=== PATIENT | female | born 1965 | race Hispanic/Latino ===

== ENCOUNTER → 2020-10-18 14:05 | Outpatient (CLI) | payer OTHER, SELFPAY ==
[2020-10-18 14:28] LABS: COVID19 -Nasal RAPID Negative (Negative)
== END ==
PROVIDERS: PCP Family Medicine; Visit Provider Physician Assistant
DX: Z20.822 Contact with and (suspected) exposure to COVID-19 (principal)
CPT/HCPCS: 87635

== ENCOUNTER 2020-10-21 09:59 | Inpatient (IN) | payer OTHER, SELFPAY ==
[2020-10-21] VITALS (12 sets, daily range): BP systolic 145–184; BP diastolic 81–107; PULSE 95–108; RESP 14–22; TEMP 35.5–36.6; O2SAT 95–99; BMI 33.6
[2020-10-21] MEDS: LACTATED RINGERS 1,000 ML 42 ML IV ×2 (12:04→13:36)
--- NOTE | 2020-10-21 12:31 | PM.PREOP ---
Pre-operative Note COVID-19 COVID-19 status: Negative Result date/Date tested (Pos, Neg/Pending): 10/19/20 Interval Note History & Physical reviewed/Exam performed by Physician: Yes Changes to H&P: No
[2020-10-21] MEDS: CEFAZOLIN 1 GM VIAL 2 GM IV ×2 (13:06→21:00)
--- NOTE | 2020-10-21 13:26 | SUR.OPER ---
Supine, head on gel donut. Arms padded with gel pads, tucked at sides, towel roll under shoulders. Safety belt at thigh. Legs uncrossed.
--- NOTE | 2020-10-21 15:35 | P.OP_ITS ---
Operative Date/Time/Diagnoses Date of procedure: 10/21/20 Time of procedure: 13:35 Pre-op diagnosis: 1. C5-6, C6-7 spinal stenosis 2. C5-6, C6-7 spondylosis with radiculopathy Post-op diagnosis: same Procedure & Clinicians Procedure: 1. C5-6 C6-7 anterior cervical diskectomy and fusion 2. C5-6 C6-7 anterior interbody cage placement 3. C5-6 C6-7 anterior instrumentation with plate and screw placement in C5-C6 and C7 vertebrae 4. Utilization of microsurgical technique and operating microscope Same procedure as scheduled: Yes Indications: Patient has been having chronic neck pain and worsening cervical radiculopathy. Patient failed multiple conservative management with worsening pain weakness and numbness in her upper extremity. Patient has been having difficulty performing activity of daily living. After discussing risks benefits of treatment options, patient elected proceed with surgery. Surgeon: Yesenia Joseph Mechanical Facilities Technician: Devan Abreu Click Yes if Unassisted: No Anesthesia Type: General Operative Notes Closure Type: primary Specimen(s): none sent Prosthetic devices, grafts, tissues, transplants, or devices: Globus Extend Plate, PEEK cages Estimated Blood Loss (mL): 20 Blood products transfused: none Procedure in detail: Patient was seen in the preoperative area. Risks and benefits of the surgery was discussed with the patient. Operative consent was obtained and placed in the chart. Patient was then taken to the operative room. Prophylactic antibiotic was given less than 0.5 hr prior to skin incision. General anesthesia was administered. Patient was placed into a supine position on her radiolucent table. Bilateral shoulders were taped down to allow proper C- arm imaging. Anterior cervical area was prepped and draped in a sterile fashion. Time-out was performed at this time. Using lateral C-arm imaging, the level between C5 and C7 was identified and marked on patient's neck. A oblique incision from midline towards medial border of sternocleidomastoid muscle was made. The platysma muscle was incised in line with skin incision. Metzenbaum scissor was used to develop the plane between the medial border of sternocleidomastoid d and the strap muscles medially. The carotid sheath and its contents were identified and protected behind the hand- held retractor during the entire case. The plane between the carotid sheath and strap muscles was developed with Metzenbaum scissors. Dissection was made down to the level of the anterior cervical fascia. Longus colli muscle was incised on the anterior aspect of vertebral bodies bilaterally from C5-C7. Spinal needle was placed into the C5-6 disc space and confirmed with lateral C-arm imaging. Using microsurgical technique and operative microscope, anterior cervical diskectomy was performed at C5-6 and C6-7 level. This was done by removing the disc material, removing the anterior and posterior osteophytes posterior longitudinal ligaments along with performing bilateral foraminotomies at both levels. Patient was found to have severe central and foraminal stenosis at both levels. Patient's stenosis was fully decompressed after decompression was completed. After the diskectomy was completed, 2 anterior interbody cages were obtained. The cages were packed with globus via cell bone grafting material. One cage each along with the bone grafting material was then packed into the interbody spaces from C5-C7 with one cage into each interbody level. After the cages were placed, the anterior cervical plate was stabilized to the C5-C7 vertebrae using 2 screws at each each level. Total 6 screws were placed. After confirming placement of the hardware with AP and lateral C-arm imaging, the screws were locked into the plate using the locking mechanism and torque limiting screwdriver. After the hardware was placed and confirmed with AP and lateral C-arm imaging, the wound was irrigated with sterile normal saline. The platysma muscle and the subcutaneous tissue was closed with 2-0 Vicryl. The skin was closed with 4-0 Monocryl and Steri-Strips. Patient tolerated the procedure well. Patient was transferred recovery room in stable condition. There were no complications. Complications: none Post-operative Condition: stable Disposition: PACU Plan for aftercare: Admit to inpatient hospital
--- NOTE | 2020-10-21 15:38 | DI.RAD.S_ITS ---
PROCEDURE: XR CERVICAL SPINE 2V OR 3V INDICATIONS: C5-6, C6-7 ACDF TECHNIQUE: 2 view(s) of the cervical spine were acquired. COMPARISON: [facility] [place], CR, XR CERVICAL SPINE 6+ VIEWS, 07/10/2020, 13:56. [facility] Outside Film, MR, MR CERVICAL SPINE WITHOUT CONTRAST, 07/24/2020, 13:23. FINDINGS: 2 intraoperative fluoroscopy images demonstrate discectomy and anterior fusion at C5-C6 and C6-C7. IMPRESSION: Discectomy and anterior fusion at C5-C6 and C6-C7. Dictated by: Yolanda Cantu M.D. on 10/21/2020 at 16:50 Approved by: Yolanda Cantu M.D. on 10/21/2020 at 17:05
[2020-10-21] MEDS: HYDROMORPHONE 2 MG INJ IV (15:51)
[2020-10-21] MEDS: ONDANSETRON 4 MG/2 ML INJ IV (16:19)
--- NOTE | 2020-10-21 16:34 | SUR.PHASEI ---
Pt up to floor with self and RN Viviane transporting. Report given to Rodney MCLAUGHLIN. Transfer of care completed and pt in room on monitor.
[2020-10-21] MEDS: SODIUM CHLORIDE 0.9% 1,000 ML 100 ML IV (16:47)
[2020-10-21] MEDS: HYDROMORPHONE 0.5 MG INJ IV ×2 (17:14→21:01)
[2020-10-21] MEDS: hydrOXYzine pamoate 25 MG CAPSULE PO (17:52)
[2020-10-21] MEDS: OXYCODONE IR 5 MG TABLET PO (17:52)
[2020-10-21] MEDS: METFORMIN HCL 500 MG TABLET 1000 MG PO (18:30)
[2020-10-21] MEDS: SENNOSIDES 8.6 MG TABLET 17.2 MG PO (21:00)
[2020-10-21] MEDS: ATORVASTATIN 20 MG TABLET 40 MG PO (21:00)
[2020-10-21] MEDS: DOCUSATE 100 MG CAPSULE PO (21:00)
[2020-10-21] MEDS: INSULIN LISPRO 100 UNIT/ML 3ML VIAL SUBCUT (21:18)
[2020-10-22] VITALS (9 sets, daily range): BP systolic 130–154; BP diastolic 73–99; PULSE 84–110; RESP 16–18; TEMP 36.1–37; O2SAT 94–98
[2020-10-22] MEDS: ONDANSETRON 4 MG/2 ML INJ IV ×2 (00:21→07:50)
[2020-10-22] MEDS: OXYCODONE IR 5 MG TABLET PO ×7 (00:21→23:47)
[2020-10-22] MEDS: HYDROMORPHONE 0.5 MG INJ IV (01:47)
[2020-10-22] MEDS: ALPRAZolam 0.25 MG TABLET PO (02:45)
--- NOTE | 2020-10-22 02:47 | PC.NURSE ---
Pt. wide awake not able to sleep, 0.25 mg. of Xanax admin. Glucose self monitor: 222,219 & 186 now, CBG per hospital glucometer was 236 @ 0205. Pt. trying to get some sleep now. Will cont. POC & monitor.
[2020-10-22] MEDS: SODIUM CHLORIDE 0.9% 1,000 ML 100 ML IV (03:37)
[2020-10-22] MEDS: CEFAZOLIN 1 GM VIAL 2 GM IV (04:33)
[2020-10-22] MEDS: DOCUSATE 100 MG CAPSULE PO ×2 (07:50→20:53)
[2020-10-22] MEDS: INSULIN LISPRO 100 UNIT/ML 3ML VIAL SUBCUT ×3 (07:50→20:54)
[2020-10-22] MEDS: METFORMIN HCL 500 MG TABLET 1000 MG PO ×2 (07:50→20:53)
[2020-10-22] MEDS: polyethylene glycoL 3350 17 GM POWD.PACK PO (09:14)
--- NOTE | 2020-10-22 09:15 | OT.IP.EVAL ---
Current Diagnoses Other spondylosis with radiculopathy, cervical region (10/21/20) Spinal stenosis, cervical region (10/21/20) Surgery Performed Operation Date: 10/21/20 12:15 Actual Procedures p C5-6, C6-7 ACDF with anterior instrumentation(Not Applicable) - Yeseina Joseph MD Past Medical History (Last Reviewed 10/22/20 @ 10:58 by Devan Abreu PA-C) ACL (anterior cruciate ligament) tear Anemia Anxiety Asthma Cancer of right breast Diabetes 1.5, managed as type 2 Diverticulosis Frequent headaches Full dentures Generalized headaches GERD (gastroesophageal reflux disease) Hyperlipemia Hypertension Hypoglycemia Incisional hernia Inguinal hernia Kidney stones PTSD (post-traumatic stress disorder) Urinary frequency Surgical History (Last Reviewed 10/22/20 @ 10:58 by Devan Abreu PA-C) History of breast reconstruction History of cholecystectomy History of hysterectomy History of lumpectomy of right breast History of Monique fundoplication (~11/10/11) S/P right knee arthroscopy Occupational Therapy Inpatient Evaluation/Re-Eval M1 PT/OT-IP Prior Functional Status Start: 10/22/20 11:39 Freq: NEEDED Status: Active Protocol: Document 10/22/20 12:38 [facility] (Rec: 10/22/20 12:50 [facility] [id number]) Medical Review Prior Functional Status Medical History Reviewed Yes Communication able to make needs known Mobility and Gait pt stated that she is independent with all mobilities and ambulation without AD Activities of Daily Living and IADL's Pt states had difficulty with IADL's as at times her right arm would give out. Social History Household Members spouse Living Arrangements House Number of Floors (Floors) One Floor Number of Stairs To Enter/Railing? 3 steps to enter without rails from the back 3 steps to enter with R rail from the front Home Environment Standard Height Toilet,Walk in Shower Home Equipment Shower Seat without Backrest, Hand Held Shower,Grab Bars In Shower Employment Status Unemployed M2 OT-IP Current Condition Start: 10/22/20 12:38 Freq: Status: Active Protocol: Document 10/22/20 12:38 [facility] (Rec: 10/22/20 12:50 [facility] [id number]) Occupational Therapy Current Condition Current Condition Evaluation Date 10/22/20 Treatment Diagnosis s/p C5-6, C6-7 ACDF Post Operative Precautions Cervical Spine Precautions Soft Collar for Comfort,No Heavy Lifting,Log Roll M3 OT- IP Subjective and Pain Start: 10/22/20 12:38 Freq: Status: Active Protocol: Document 10/22/20 12:38 [facility] (Rec: 10/22/20 12:50 [facility] [id number]) OT- Subjective Occupational Therapy Visit Type Type Initial Evaluation Visit Start Time 08:48 Visit Stop Time 09:15 Total Visit Minutes 27 Occupational Therapy Visit Comments Patient Comments Pt already in front of the sink sponging off when OT arrived to see pt for OT eval. Patient/Caregiver Goals TO go home. OT Pain Assessment Pain When Pain Assessed At Rest Pain Present Pain Present Pain Reported Location right neck and arm Intensity 5 Scale Used Numeric (0 - 10) M4 OT- IP ADL's Start: 10/22/20 12:38 Freq: Status: Active Protocol: Document 10/22/20 12:38 [facility] (Rec: 10/22/20 12:50 [facility] [id number]) OT [id number] Comments OT Self-Feeding Comments Went over swallowing information after ACDF with pt . OT ADL-Grooming General Evaluation Grooming Ability Standby Assistance Areas Needing Assistance Retrieving/Set-up of Grooming Items OT ADL-Oral Care General Eval Oral Care Ability Independent OT ADL-Dressing General Eval Lower Body Dressing Ability Standby Assistance Comments OT Dressing Comments Pt able to independently cross her legs over to krys /doff her socks. Pt able to independently krys/doff the soft collar on her own with good safety. OT ADL-Toileting General Evaluation Toileting Ability Independent OT ADL-Bathing Comments OT Bathing Comments Pt wanting to shower at home. M5 OT- IP IADL's Start: 10/22/20 12:38 Freq: Status: Active Protocol: Document 10/22/20 12:38 [facility] (Rec: 10/22/20 12:50 [facility] [id number]) OT-Instrumental Activities of Daily Living Home Safety Awareness Awareness of Need for Assistance at Home Good Awareness Ability to Problem Solve Emergency Able to Problem Solve Situations Medication Management Medication Management Comments Pt's to be home to assist pt for any IADl needs if needed. M6 OT- IP Functional Cognition Start: 10/22/20 12:38 Freq: Status: Active Protocol: Document 10/22/20 12:38 [facility] (Rec: 10/22/20 12:50 [facility] [id number]) Cognitive Factors Limiting Selfcare Function Cognitive Ability Level of Alertness Alert Patient Orientation Name,Age,Birthday,Month,Date, Year,Day of Week,Place, Situation Attention Span Ability Capable of Focused Attention, Capable of Sustained Attention Ability to Follow Commands Able to Follow One Step Commands Memory Description No Deficits Noted Safety Awareness Underestimates Need for Assistance Cognitive Comments Cognitive Assessment Comments Pt mainly just needing cues to slow down. OT- Vision and Hearing OT- Hearing Assessment OT- Hearing Assessment WFL M7 OT- IP Mobility and Balance Start: 10/22/20 12:38 Freq: Status: Active Protocol: Document 10/22/20 12:38 [facility] (Rec: 10/22/20 12:50 [facility] [id number]) OT- Bed Mobility Assessment Supine to Sit Supine to Sit Assist Standby Assistance Sit to Supine Sit to Supine Assist Standby Assistance OT-Transfer Assessment Sit to and From Stand Sit to and from Stand Standby Assistance Transfers Transfer Ability Standby Assistance Technique Transfer Destination Bed,Toilet Transfer Technique Stand Step Pivot Devices Transfer Assistive Devices None Comments Mobility Comments Pt able to safely move in the room with distant SBA. OT- Balance Assessment Sitting Balance and Reactions Static Sitting Balance Ability Normal Dynamic Sitting Balance Ability Good Standing Balance and Reactions Static Standing Balance Ability Good M8 OT- IP Objective Assessments Start: 10/22/20 12:38 Freq: Status: Active Protocol: Document 10/22/20 12:38 [facility] (Rec: 10/22/20 12:50 [facility] [id number]) OT Gross Range of Motion Upper Extremity Range of Motion Assessment Within Functional Limits OT- Coordination Assessment Comments Coordination Comments Pt states now able to reach up with her right arm to assist to put up her hair. M9 OT- IP Assessment and Plan Start: 10/22/20 12:38 Freq: Status: Active Protocol: Document 10/22/20 12:38 [facility] (Rec: 10/22/20 12:50 [facility] [id number]) OT Summary Assessment and Plan Potential Rehabilitation Potential Excellent Analytic Complexity at Evaluation Low Summary OT Impairments Balance,Functional Mobility, Bathing Progress Towards Goals Progressing Toward Goals Assessment Summary Pt low complexity and moving well, having good understanding of cervical precautions. Pt mainly needing initial education to slow down and follow log rolling for getting into and out of the bed. Pt looking to go home with her when medically stable. Goals Dressing Goal Independent Bathing Goal Independent Shower Transfer Goal Independent Days to Meet Goals 1 Frequency of Treatment Frequency Of Treatment Once a Day Treatment Plan OT Treatment Plan ADL Training,Functional Cognition Training,Functional Mobility,Patient/Family Education,Discharge Planning Other Treatment Recommendations and Next shower if still here Treatment Focus Discharge Recommendations OT Discharge Recommendations Home with Assistance Transportation Needs at Discharge Private Vehicle
[2020-10-22] MEDS: buPROPion XL 150 MG TAB 300 MG PO (09:16)
[2020-10-22] MEDS: hydrOXYzine pamoate 25 MG CAPSULE PO ×2 (09:16→19:44)
[2020-10-22] MEDS: METOPROLOL IR 25 MG TABLET PO (09:27)
--- NOTE | 2020-10-22 09:30 | PT.IIE ---
Current Diagnoses Other spondylosis with radiculopathy, cervical region (10/21/20) Spinal stenosis, cervical region (10/21/20) Surgery Performed Operation Date: 10/21/20 12:15 Actual Procedures p C5-6, C6-7 ACDF with anterior instrumentation(Not Applicable) - Yesenia Joseph MD Surgical History (Last Reviewed 10/22/20 @ 10:58 by Devan Abreu PA-C) History of breast reconstruction History of cholecystectomy History of hysterectomy History of lumpectomy of right breast History of Monique fundoplication (~11/10/11) S/P right knee arthroscopy Medical History (Last Reviewed 10/22/20 @ 10:58 by Devan Abreu PA-C) ACL (anterior cruciate ligament) tear Anemia Anxiety Asthma Cancer of right breast Diabetes 1.5, managed as type 2 Diverticulosis Frequent headaches Full dentures Generalized headaches GERD (gastroesophageal reflux disease) Hyperlipemia Hypertension Hypoglycemia Incisional hernia Inguinal hernia Kidney stones PTSD (post-traumatic stress disorder) Urinary frequency Physical Therapy Inpatient Evaluation/Re-Eval M1 PT/OT-IP Prior Functional Status Start: 10/22/20 11:39 Freq: NEEDED Status: Active Protocol: Document 10/22/20 09:30 [facility] (Rec: 10/22/20 11:47 [facility] [id number]) Medical Review Prior Functional Status Medical History Reviewed Yes Communication able to make needs known Mobility and Gait pt stated that she is independent with all mobilities and ambulation without AD Social History Household Members spouse Living Arrangements House Number of Floors (Floors) One Floor Number of Stairs To Enter/Railing? 3 steps to enter without rails from the back 3 steps to enter with R rail from the front Home Environment Standard Height Toilet,Walk in Shower Home Equipment Shower Seat without Backrest, Hand Held Shower,Grab Bars In Shower Employment Status Unemployed M2 PT-IP Current Condition Start: 10/22/20 11:39 Freq: NEEDED Status: Active Protocol: Document 10/22/20 09:30 [facility] (Rec: 10/22/20 11:47 AB [id number]) Physical Therapy Current Condition Current Condition Evaluation Date 10/22/20 Treatment Diagnosis s/p C5-6, 6-7 ACDF; difficulty in walking Onset Date 10/21/20 Precautions Cervical Spine Precautions Soft Collar for Comfort,No Heavy Lifting,Log Roll M3 PT-IP Subjective Start: 10/22/20 11:39 Freq: NEEDED Status: Active Protocol: Document 10/22/20 09:30 [facility] (Rec: 10/22/20 11:47 [facility] [id number]) Subjective Physical Therapy Visit Type Type Initial Evaluation Visit Start Time 09:30 Visit Stop Time 09:55 Total Visit Minutes 25 Number of DIE ENGRAVER Visits 0 Physical Therapy Visit Comments Patient Comments pt is agreeable to do PT Therapy Pain Assessment Pain When Pain Assessed At Rest Pain Present Pain Present Pain Reported Location right neck and arm Intensity 7 Scale Used Numeric (0 - 10) Pain Management Techniques Apply Cold,Distraction, Modification of Treatment,Re- positioning,Timing of Activity with Medications M4 PT-IP Mobility and Gait Start: 10/22/20 11:39 Freq: NEEDED Status: Active Protocol: Document 10/22/20 09:30 [facility] (Rec: 10/22/20 11:47 [id number]) PT-Bed Mobility Assessment Rolling Type of Rolling Log Rolling Level of Assist Standby Assistance Supine to Sit Supine to Sit Standby Assistance Sit to Supine Sit to Supine Standby Assistance PT-Transfer Assessment Sit to and From Stand Sit to and from Stand Standby Assistance Equipment Transfer Assistive Device None,Gait Belt Orthotic/Prosthetic Devices or Brace: Yes Comments Mobility Comments reviewed cervical precautions and log roll bed mobility with pt. pt was able to krys cervical collar on independently. completed log roll supine to sit SBA. pt was able to sit on EOB SBA. completed sit to stand SBA and ambulated in room without AD SBA. initial unsteady gait but without LOB and steadier after a few feet of ambulation . pt stated that she is slightly dizzy. completed up/ down step without rails/AD CGA and cues for steadiness. pt requested to go back to bed and completed sit to supine SBA. positioned in bed. call light and table placed within reach. Gait Assessment Gait Gait Assistance Required: Standby Assistance Distance (Feet) 40 Able to Maintain Weight Bearing Status Yes During Gait Assistive Devices Assistive Device None,Gait Belt Orthotic/Prosthetic Devices or Brace: Yes Gait Deviations General Gait Pattern Decreased Stride Length Factors Limiting Gait Function Factors Limiting Gait Function Decreased Activity Tolerance, Decreased Strength,Limited Range of Motion,Pain,Poor Balance Stair Climbing Assessment Evaluation Level of Assist On Stairs Contact Guard Assistance Devices Stair Climbing Assistive Devices None Technique/Endurance Stair Climbing Direction Ascend and Descend Stair Climbing Technique Step to Step Number of Steps Climbed 1 Query Text: Stair Climbing Set # Repetitions (reps) 4 PT-Balance Assessment Sitting Balance and Reactions Static Sitting Balance Ability Normal Dynamic Sitting Balance Ability Normal Standing Balance and Reactions Static Standing Balance Ability Good Dynamic Standing Balance Ability Good Device Used without AD M5 PT-IP Objective Assessments Start: 10/22/20 11:39 Freq: NEEDED Status: Active Protocol: Document 10/22/20 09:30 [facility] (Rec: 10/22/20 11:47 AB [id number]) Orientation Orientation/Cognition Level of Alertness Alert Orientation Name,Place,Situation Language Function Ability No Deficits Noted Safety Awareness Understands Safety Issues Memory Description No Deficits Noted Gross Range of Motion Lower Extremity ROM Assessment Within Functional Limits Strength Lower Extremity Strength Assessment Within Functional Limits Muscle Tone Muscle Tone WNL Yes M6 PT-IP Treatment Start: 10/22/20 11:39 Freq: NEEDED Status: Active Protocol: Document 10/22/20 09:30 [facility] (Rec: 10/22/20 11:47 AB [id number]) Physical Therapy Treatment Education Education Provided Precautions,Safety M7 PT-IP Assessment and Plan Start: 10/22/20 11:39 Freq: NEEDED Status: Active Protocol: Document 10/22/20 09:30 [facility] (Rec: 10/22/20 11:47 AB [id number]) PT Summary Assessment and Plan Potential Rehabilitation Potential Good Status of Condition at Evaluation Stable Summary Impairments Pain,ROM,Strength,Balance, Coordination,Sensation,Tone, Cognition,Bed Mobility, Transfers,Gait,Activity Tolerance Assessment Summary pt requiring SBA to [facility] with mobiltiy without AD. pt plans to go home and spouse to assist pt as needed. pt may go home when medically stable. Goals Bed Mobility Goal Independent Transfer Goal Independent Gait Goal Independent Gait Distance 200 Other Goals up/down 3 steps without rails SBA Days to Meet Goals 3 Frequency of Treatment Frequency Of Treatment Twice a Day Treatment Plan Physical Therapy Treatment Plan Bed Mobility Training,Transfer Training,Gait Training, Therapeutic Exercise,Balance Retraining,Post Op Education, Discharge Planning,Hot or Cold Pack,Neuromuscular Re-ed, Coordination Retraining,Manual Therapy Precautions Cervical Spine Precautions Soft Collar for Comfort,No Heavy Lifting,Log Roll Recommendations To Nursing Amount of Assist Needed Standby Assistance Discharge Recommendations PT Discharge Recommendations Home with Assistance Transportation Needs at Discharge Private Vehicle
[2020-10-22] MEDS: SCOPOLAMINE 1 PATCH TOP (10:36)
--- NOTE | 2020-10-22 10:55 | PM.PNPO.1 ---
Subjective Subjective Date Patient Seen: 10/22/20 Time Patient Seen: 10:55 Interval history: Patient states that she is extremely nauseous and she rates her pain a 7/10 in intensity. She denies for, chills, shortness of breath, chest pain, or urinary retention. She reports good sensation throughout the bilateral upper extremities. Exam Vital Signs (past 8 hours): - 10/22/20 04:40 10/22/20 08:00 Temperature 97.4 F L 98.1 F Pulse Rate 99 H 91 H Respiratory Rate 18 17 Blood Pressure 132/78 150/89 H Pulse Oximetry 94 97 Oxygen Delivery Method Room Air Oxygen Flow Rate 0 Narrative Exam Narrative: 56-year-old female postop day 1. Patient appears anxious is in mild distress. She is alert and oriented x3. Skin is warm and dry, and the skin surrounding the incision site is free of erythema, warmth, induration, or discharge. Good sensation appreciated throughout the bilateral upper extremities to light touch. Thumb opposition intact, capillary refill less than 2 seconds. Const General: cooperative, healthy appearing and comfortable Resp Effort & Inspection: normal respiratory effort and able to speak in complete sentences Skin General: no rashes or lesions noted [facility] Medical History ACL (anterior cruciate ligament) tear Anemia Anxiety Asthma Cancer of right breast Diabetes 1.5, managed as type 2 Diverticulosis Frequent headaches Full dentures Generalized headaches GERD (gastroesophageal reflux disease) Hyperlipemia Hypertension Hypoglycemia Incisional hernia Inguinal hernia Kidney stones PTSD (post-traumatic stress disorder) Urinary frequency Surgical History History of breast reconstruction History of cholecystectomy History of hysterectomy History of lumpectomy of right breast History of Monique fundoplication (~11/10/11) S/P right knee arthroscopy Social History household members: spouse Smoking Status: Former smoker alcohol intake: never Assessment & Plan Post-op Postoperative Procedures: Procedures Operation Date: 10/21/20 12:15 Actual Procedures Side Surgeon p C5-6, C6-7 ACDF with anterior instrumentation Not Applicable Yesenia Joseph MD Postoperative day: 1 Postoperative plan: ambulate Postoperative plan narrative: Patient is to continue working with PT. pain management regimen is to be continued at this time. Will continue to monitor the patient due to her ongoing nausea. Time Spent With Patient Time with patient: 15-24 minutes
--- NOTE | 2020-10-22 11:18 | CM.DANOTE ---
DCP/Assessment: Reviewed chart. Patient is a 55yr old female admitted [facility] spine surgery performed on 10-21-20. PCP is Srinivasan Martinez. Primary payor is 1)Int[employer]. Met with patient this AM explained CM/SW role. Patient currently with PT evaluation pending. Patient reports that she is having a lot of nausea at time of interview. Patient confirms that she resides with spouse/Seymour in [place], [place]. Patient plans to d/c home when stable. CM team to see patient again prior to d/c if possible due to patient having a lot of nausea and pain during initial visit. RN aware. P: Anticipate home when stable. EMY Rosen Discharge Planning/Care Management CM Discharge Assessment Start: 10/22/20 11:11 Freq: Status: Active Protocol: Document 10/22/20 11:11 KJS (Rec: 10/22/20 11:18 KJS [id number]) Discharge Planning Assessment Assigned Assistant [employer] Of [employer] Delivery EMY Rosen Contact Information Seymour Watkins (spouse) ph# [phone] Advance Directives? No History Provided By Patient,Medical Record Prior Living Arrangements House Household Members spouse Type of transporation used prior to Drives own vehicle admit Independent with ADL's Yes: Patient reports I prior to admit. Is patient alert and oriented? Yes Barriers to Discharge No Discharge Plan Home Transportation Arrangement Family to provide transport. Review Status In Process Next Review Type Continued Stay Review
--- NOTE | 2020-10-22 12:39 | PC.NURSE ---
Addendum entered by Svetlana Love R.N. 10/22/20 12:53: Patient tolerated lunch without nausea. Original Note: Patient c/o nausea, no emesis, IVP zofran and scopalamine patch given. Patient also c/o itchiness to neck dressing. ARIANA Clapper aware and states dressing to anterior neck can be changed. one 4x4 placed and secured with large tegaderm. Incision CDI, steri strip intact.
--- NOTE | 2020-10-22 15:40 | PT.IPTN ---
Current Diagnoses Other spondylosis with radiculopathy, cervical region (10/21/20) Spinal stenosis, cervical region (10/21/20) Surgery Performed Operation Date: 10/21/20 12:15 Actual Procedures p C5-6, C6-7 ACDF with anterior instrumentation(Not Applicable) - Yesenia Joseph MD Physical Therapy Treatment Note M2 PT-IP Current Condition Start: 10/22/20 11:39 Freq: NEEDED Status: Active Protocol: Document 10/22/20 09:30 AB (Rec: 10/22/20 11:47 AB [id number]) Physical Therapy Current Condition Current Condition Evaluation Date 10/22/20 Treatment Diagnosis s/p C5-6, 6-7 ACDF; difficulty in walking Onset Date 10/21/20 Precautions Cervical Spine Precautions Soft Collar for Comfort,No Heavy Lifting,Log Roll M3 PT-IP Subjective Start: 10/22/20 11:39 Freq: NEEDED Status: Active Protocol: Document 10/22/20 15:40 AB (Rec: 10/22/20 17:14 AB [id number]) Subjective Physical Therapy Visit Type Type Treatment Note Visit Start Time 15:40 Visit Stop Time 15:55 Total Visit Minutes 15 Number of MANAGER SALES AND MARKETING Visits 0 Physical Therapy Visit Comments Patient Comments agreed to do PT Therapy Pain Assessment Pain When Pain Assessed At Rest Pain Present Pain Present Pain Reported Location right neck and arm Intensity 7 Scale Used Numeric (0 - 10) Pain Management Techniques Apply Cold,Elevation, Modification of Treatment,Re- positioning,Timing of Activity with Medications M4 PT-IP Mobility and Gait Start: 10/22/20 11:39 Freq: NEEDED Status: Active Protocol: Document 10/22/20 15:40 AB (Rec: 10/22/20 17:14 AB [id number]) PT-Bed Mobility Assessment Supine to Sit Supine to Sit Standby Assistance,Head of Bed Elevated PT-Transfer Assessment Sit to and From Stand Sit to and from Stand Standby Assistance Equipment Transfer Assistive Device None,Gait Belt Orthotic/Prosthetic Devices or Brace: Yes Transfers Transfer Destination Chair Transfer Technique ambulated without AD Transfer Ability Level of Assist Standby Assistance,Contact Guard Assistance,1 Person Assistance,Use of Upper Extremities Comments Mobility Comments pt c/o nausea but agreed to do PT. completed supine to sit SBA with HOB elevated and able to krys collar independently. completed sit to stand SBA and ambulated in the hallway without AD SBA to occasional CGA during initial walking. completed up/down steps using L rail SBA and without rails CGA. ambulated back to her room and sat on chair. positioned on chair. call light and table placed within reach. Gait Assessment Gait Gait Assistance Required: Standby Assistance,Contact Guard Assist Distance (Feet) 125 Able to Maintain Weight Bearing Status Yes During Gait Assistive Devices Assistive Device None,Gait Belt Orthotic/Prosthetic Devices or Brace: Yes Factors Limiting Gait Function Factors Limiting Gait Function Decreased Activity Tolerance, Decreased Strength,Limited Range of Motion,Pain,Poor Balance Stair Climbing Assessment Evaluation Level of Assist On Stairs Standby Assistance,Contact Guard Assistance Devices Stair Climbing Assistive Devices Left Railing Technique/Endurance Stair Climbing Direction Ascend and Descend Stair Climbing Technique Step Over Step,Step to Step Number of Steps Climbed 3 Stair Climbing Set # Repetitions (reps) 2 Comments Stair Climbing Comments completed up/down steps using L rail ascending SBA step through pattern; completed again without rails CGA step to pattern. pt stated that her spouse will be able to assist if needed. M5 PT-IP Objective Assessments Start: 10/22/20 11:39 Freq: NEEDED Status: Active Protocol: Document 10/22/20 09:30 AB (Rec: 10/22/20 11:47 AB [id number]) Orientation Orientation/Cognition Level of Alertness Alert Orientation Name,Place,Situation Language Function Ability No Deficits Noted Safety Awareness Understands Safety Issues Memory Description No Deficits Noted Gross Range of Motion Lower Extremity ROM Assessment Within Functional Limits Strength Lower Extremity Strength Assessment Within Functional Limits Muscle Tone Muscle Tone WNL Yes M6 PT-IP Treatment Start: 10/22/20 11:39 Freq: NEEDED Status: Active Protocol: Document 10/22/20 15:40 AB (Rec: 10/22/20 17:14 AB [id number]) Physical Therapy Treatment Education Education Provided Precautions,Safety M7 PT-IP Assessment and Plan Start: 10/22/20 11:39 Freq: NEEDED Status: Active Protocol: Document 10/22/20 15:40 AB (Rec: 10/22/20 17:14 AB [id number]) PT Summary Assessment and Plan Potential Rehabilitation Potential Good Summary Impairments Pain,ROM,Strength,Balance, Coordination,Sensation,Tone, Cognition,Bed Mobility, Transfers,Gait,Activity Tolerance Progress Towards Goals Slow Progress due to Pain Assessment Summary pt requiring SBA to CGA with mobility and plans to go home with spouse to assist her. pt may go home when medically stable. Goals Bed Mobility Goal Independent Transfer Goal Independent Gait Goal Independent Gait Distance 200 Other Goals up/down 3 steps without rails SBA Days to Meet Goals 3 Frequency of Treatment Frequency Of Treatment Twice a Day Treatment Plan Physical Therapy Treatment Plan Bed Mobility Training,Transfer Training,Gait Training, Therapeutic Exercise,Balance Retraining,Post Op Education, Discharge Planning,Hot or Cold Pack,Neuromuscular Re-ed, Coordination Retraining,Manual Therapy Precautions Cervical Spine Precautions Soft Collar for Comfort,No Heavy Lifting,Log Roll Recommendations To Nursing Amount of Assist Needed Standby Assistance Discharge Recommendations PT Discharge Recommendations Home with Assistance Transportation Needs at Discharge Private Vehicle
--- NOTE | 2020-10-22 18:40 | PC.NURSE ---
PATIENT STATES ALLERGY TO TYLENOL, D/CD FROM [facility]
[2020-10-22] MEDS: SENNOSIDES 8.6 MG TABLET 17.2 MG PO (20:53)
[2020-10-22] MEDS: ATORVASTATIN 20 MG TABLET 40 MG PO (20:53)
[2020-10-22] MEDS: ONDANSETRON 4 MG ODT 8 MG PO (23:50)
[2020-10-22] MEDS: ZOLPIDEM 5 MG TABLET PO (23:52)
[2020-10-23 04:00] VITALS: BP 129/73; PULSE 99; RESP 18; TEMP 36.6; O2SAT 94
[2020-10-23 08:00] VITALS: BP 132/78; PULSE 90; RESP 18; TEMP 36.7; O2SAT 96
--- NOTE | 2020-10-23 08:08 | PM.DS.1 ---
History of Present Illness History of Present Illness Date Patient Seen: 10/23/20 Time Patient Seen: 08:08 Chief complaint: Cervical Fusion Anterior Narrative: Pain is moderate. Denies fever or chills. No shortness breath or difficulty swallowing. Discharge Providers Provider Date of admission: 10/21/20 09:59 Discharge Date: 10/23/20 Primary care physician: Srinivasan Martinez DO Consults: 10/21/20 16:27 Consult to Occupational Therapy Evaluate & Treat Comment: Physician Instructions: Evaluate and treat Consult to Physical Therapy Evaluate & Treat Comment: Physician Instructions: Evaluate and Treat Discharge provider: Olvin Lebron PA-C Summary Hospital Course Discharge Diagnosis: 1. C5-6, C6-7 spinal stenosis 2. C5-6, C6-7 spondylosis with radiculopathy Hospital Course: . C5-6 C6-7 anterior cervical diskectomy and fusion 2. C5-6 C6-7 anterior interbody cage placement 3. C5-6 C6-7 anterior instrumentation with plate and screw placement in C5-C6 and C7 vertebrae 4. Utilization of microsurgical technique and operating microscope Same procedure as scheduled: Yes Indications: Patient has been having chronic neck pain and worsening cervical radiculopathy. Patient failed multiple conservative management with worsening pain weakness and numbness in her upper extremity. Patient has been having difficulty performing activity of daily living. After discussing risks benefits of treatment options, patient elected proceed with surgery. Surgeon: Yesenia Jospeh Infant Childcare Provider: Devan Abreu Click Yes if Unassisted: No Anesthesia Type: General Operative Notes Closure Type: primary Specimen(s): none sent Prosthetic devices, grafts, tissues, transplants, or devices: Globus Extend Plate, PEEK cages Estimated Blood Loss (mL): 20 Blood products transfused: none Patient admitted to the hospital for the above-mentioned procedure. Patient consented to the same. Patient taken to operating room underwent cervical spine fusion on October 21, 2020. Patient recovering well as in stable condition. Discharge home today in stable condition. Status at Discharge Cognitive/behavioral status at discharge: at baseline, oriented Functional status at discharge: independent ambulation Overall status at discharge: patient is progressing back to baseline Time Spent with Patient Time spent: Less than 30 minutes Exam Vital Signs (past 8 hours): - 10/23/20 04:00 Temperature 97.8 F Pulse Rate 99 H Respiratory Rate 18 Blood Pressure 129/73 Pulse Oximetry 94 Oxygen Delivery Method Room Air Oxygen Flow Rate 0 Narrative Exam Narrative: 55-year-old female sitting up in bed having breakfast in no apparent distress. Motor functions intact bilateral lower extremities. Sensation grossly intact to light touch bilateral lower extremities. Cervical dressing is clean, dry and intact. COUNT INCLUDES [facility] Medical History ACL (anterior cruciate ligament) tear Anemia Anxiety Asthma Cancer of right breast Diabetes 1.5, managed as type 2 Diverticulosis Frequent headaches Full dentures Generalized headaches GERD (gastroesophageal reflux disease) Hyperlipemia Hypertension Hypoglycemia Incisional hernia Inguinal hernia Kidney stones PTSD (post-traumatic stress disorder) Urinary frequency Surgical History History of breast reconstruction History of cholecystectomy History of hysterectomy History of lumpectomy of right breast History of Monique fundoplication (~11/10/11) S/P right knee arthroscopy Social History household members: spouse Smoking Status: Former smoker alcohol intake: never Discharge Assessment & Plan Assessment and Plan Assessment: Patient progressing as expected. Plan of Treatment: Soft collar for comfort. Pain meds as directed. Follow-up in 2 weeks. Discharge home today in stable condition. Discharge Plan Discharge Plan Patient Disposition: Home Discharge orders & Medications Prescriptions: New oxycodone 5 mg Tablet 5 mg PO Q3HR PRN (Reason: Pain, Moderate (4-6)) Qty: 60 RF: 0 ondansetron HCl [Zofran] 4 mg tablet 4 mg PO Q6H PRN (Reason: nausea and vomiting) Qty: 14 RF: 0 Continued promethazine 25 mg Suppository 25 mg NV Q6H PRN (Reason: Nausea) RF: 0 ondansetron 8 mg Tablet,Disintegrating 8 mg PO Q12H PRN (Reason: Nausea) RF: 0 alprazolam 0.25 mg Tablet 0.25 mg PO BID PRN (Reason: Anxiety) RF: 0 metformin 1,000 mg Tablet 1,000 mg PO BID RF: 0 promethazine 25 mg Tablet 25 mg PO QID PRN (Reason: Nausea) RF: 0 aspirin 81 mg Tablet 81 mg PO DAILY RF: 0 zolpidem [Ambien] 5 mg Tablet 5 mg PO BEDTIME PRN (Reason: Insomnia) RF: 0 albuterol 90 mcg/actuation Aerosol 90 mcg INHALATION Q4H PRN (Reason: Shortness Of Breath Or Wheezing) RF: 0 polyethylene glycol 3350 [Miralax] 17 gram/dose Powder 17 g PO DAILY RF: 0 scopolamine base 1 mg over 3 days Patch 3 Day 1 patch topical Q3D PRN (Reason: Nausea) RF: 0 insulin aspart U-100 [Novolog Flexpen U-100 Insulin] 100 unit/mL (3 mL) Insulin Pen 5 unit SUBCUT TID PRN (Reason: Hyperglycemia) RF: 0 rosuvastatin [Crestor] 20 mg Tablet 20 mg PO DAILY RF: 0 bupropion HCl 300 mg Tablet Extended Release 24 Hr 300 mg PO QAM RF: 0 metoprolol tartrate 25 mg Tablet 25 mg PO DAILY RF: 0 empagliflozin 25 mg Tablet 25 mg PO QAM RF: 0 Follow up/Referrals: Olvin Lebron PA-C [Advanced Assistant Professor Of Dietetics] - Srinivasan Martinez DO [Primary Care Provider] - Yesenia Joseph MD [Physician] - (2 weeks) Diet/Activity/Treatments Diet: Diet as Tolerated Activity: Limit bending, twisting, lifting Cold/Heat Therapy: Ice as needed Other treatments: Soft collar for comfort Skin/Wound/Dressing Care Report to your healthcare provider any signs of infection, such as:: chills, fever, increased pain, unusual drainage and unusual redness Dressing: Keep clean and dry Visit Report/Discharge Packet Instructions: DI for Heart Failure, DI for Prescription Opioid Use, DI for Anterior Cervical Discectomy and Fusion Stand Alone Forms: Surgery Discharge Discharge Data Primary Care Provider: Srinivasan Martinez
[2020-10-23] MEDS: polyethylene glycoL 3350 17 GM POWD.PACK PO (08:09)
[2020-10-23] MEDS: METOPROLOL IR 25 MG TABLET PO (08:10)
[2020-10-23] MEDS: hydrOXYzine pamoate 25 MG CAPSULE PO ×2 (08:10→15:55)
[2020-10-23] MEDS: OXYCODONE IR 5 MG TABLET PO ×3 (08:10→14:07)
[2020-10-23] MEDS: METFORMIN HCL 500 MG TABLET 1000 MG PO (08:10)
[2020-10-23] MEDS: ONDANSETRON 4 MG ODT 8 MG PO (08:10)
[2020-10-23] MEDS: INSULIN LISPRO 100 UNIT/ML 3ML VIAL SUBCUT ×2 (08:11→12:12)
[2020-10-23] MEDS: buPROPion XL 150 MG TAB 300 MG PO (08:11)
[2020-10-23] MEDS: DOCUSATE 100 MG CAPSULE PO (08:11)
--- NOTE | 2020-10-23 10:05 | PT.IPTN ---
Current Diagnoses Other spondylosis with radiculopathy, cervical region (10/21/20) Spinal stenosis, cervical region (10/21/20) Surgery Performed Operation Date: 10/21/20 12:15 Actual Procedures p C5-6, C6-7 ACDF with anterior instrumentation(Not Applicable) - Yesenia Joseph MD Physical Therapy Treatment Note M2 PT-IP Current Condition Start: 10/22/20 11:39 Freq: NEEDED Status: Active Protocol: Document 10/22/20 09:30 AB (Rec: 10/22/20 11:47 AB [id number]) Physical Therapy Current Condition Current Condition Evaluation Date 10/22/20 Treatment Diagnosis s/p C5-6, 6-7 ACDF; difficulty in walking Onset Date 10/21/20 Precautions Cervical Spine Precautions Soft Collar for Comfort,No Heavy Lifting,Log Roll M3 PT-IP Subjective Start: 10/22/20 11:39 Freq: NEEDED Status: Active Protocol: Document 10/23/20 10:05 AB (Rec: 10/23/20 11:37 AB [id number]) Subjective Physical Therapy Visit Type Type Treatment Note Visit Start Time 10:05 Visit Stop Time 10:20 Total Visit Minutes 15 Number of WASTE WATER OPERATOR Visits 0 Physical Therapy Visit Comments Patient Comments pt is agreeable to do PT; continues to c/o nausea Therapy Pain Assessment Pain When Pain Assessed At Rest Pain Present Pain Present Pain Reported Location right neck and arm Intensity 5 Scale Used Numeric (0 - 10) Pain Management Techniques Apply Cold,Distraction, Modification of Treatment,Re- positioning,Timing of Activity with Medications M4 PT-IP Mobility and Gait Start: 10/22/20 11:39 Freq: NEEDED Status: Active Protocol: Document 10/23/20 10:05 AB (Rec: 10/23/20 11:37 AB [id number]) PT-Bed Mobility Assessment Supine to Sit Supine to Sit Standby Assistance,Head of Bed Elevated Sit to Supine Sit to Supine Standby Assistance,Head of Bed Elevated PT-Transfer Assessment Sit to and From Stand Sit to and from Stand Standby Assistance Equipment Transfer Assistive Device None,Gait Belt Orthotic/Prosthetic Devices or Brace: Yes Comments Mobility Comments completed bed mobility supine to sit SBA, sit to stand SBA and ambulated ~ 300 ft without AD SBA. presents with slow taisha and decrease LE elevation. ambulated back to her room and requested to go back to bed and completed sit to supine SBA. call light and table placed within reach. Gait Assessment Gait Gait Assistance Required: Standby Assistance Distance (Feet) 300 Able to Maintain Weight Bearing Status Yes During Gait Assistive Devices Assistive Device None,Gait Belt Orthotic/Prosthetic Devices or Brace: Yes Gait Deviations General Gait Pattern Decreased Stride Length, Decreased Feet Clearance Factors Limiting Gait Function Factors Limiting Gait Function Decreased Activity Tolerance, Decreased Strength,Limited Range of Motion,Pain,Poor Balance,Poor Safety Awareness M5 PT-IP Objective Assessments Start: 10/22/20 11:39 Freq: NEEDED Status: Active Protocol: Document 10/22/20 09:30 AB (Rec: 10/22/20 11:47 AB [id number]) Orientation Orientation/Cognition Level of Alertness Alert Orientation Name,Place,Situation Language Function Ability No Deficits Noted Safety Awareness Understands Safety Issues Memory Description No Deficits Noted Gross Range of Motion Lower Extremity ROM Assessment Within Functional Limits Strength Lower Extremity Strength Assessment Within Functional Limits Muscle Tone Muscle Tone WNL Yes M6 PT-IP Treatment Start: 10/22/20 11:39 Freq: NEEDED Status: Active Protocol: Document 10/23/20 10:05 AB (Rec: 10/23/20 11:37 AB [id number]) Physical Therapy Treatment Education Education Provided Safety M7 PT-IP Assessment and Plan Start: 10/22/20 11:39 Freq: NEEDED Status: Active Protocol: Document 10/23/20 10:05 AB (Rec: 10/23/20 11:37 AB [email or web address]) PT Summary Assessment and Plan Potential Rehabilitation Potential Good Summary Impairments Pain,ROM,Strength,Balance,Bed Mobility,Transfers,Gait, Activity Tolerance Progress Towards Goals Progressing Toward Goals Assessment Summary pt requiring SBA with ambulation without AD and plans to go home with spouse to assist. pt may go home when medically stable. Goals Bed Mobility Goal Independent Transfer Goal Independent Gait Goal Independent Gait Distance 200 Other Goals up/down 3 steps without rails SBA Days to Meet Goals 3 Frequency of Treatment Frequency Of Treatment Twice a Day Treatment Plan Physical Therapy Treatment Plan Bed Mobility Training,Transfer Training,Gait Training, Therapeutic Exercise,Balance Retraining,Post Op Education, Discharge Planning,Hot or Cold Pack,Neuromuscular Re-ed, Coordination Retraining,Manual Therapy Precautions Cervical Spine Precautions Soft Collar for Comfort,No Heavy Lifting,Log Roll Recommendations To Nursing Amount of Assist Needed Standby Assistance Discharge Recommendations PT Discharge Recommendations Home with Assistance Transportation Needs at Discharge Private Vehicle
--- NOTE | 2020-10-23 10:47 | OT.IP.TRT ---
Current Diagnoses Other spondylosis with radiculopathy, cervical region (10/21/20) Spinal stenosis, cervical region (10/21/20) Surgery Performed Operation Date: 10/21/20 12:15 Actual Procedures p C5-6, C6-7 ACDF with anterior instrumentation(Not Applicable) - Yesenia Joseph MD Occupational Therapy Treatment Note M2 OT-IP Current Condition Start: 10/22/20 12:38 Freq: Status: Active Protocol: Document 10/22/20 12:38 [facility] (Rec: 10/22/20 12:50 [facility] [id number]) Occupational Therapy Current Condition Current Condition Evaluation Date 10/22/20 Treatment Diagnosis s/p C5-6, C6-7 ACDF Post Operative Precautions Cervical Spine Precautions Soft Collar for Comfort,No Heavy Lifting,Log Roll M3 OT- IP Subjective and Pain Start: 10/22/20 12:38 Freq: Status: Active Protocol: Document 10/23/20 11:30 [facility] (Rec: 10/23/20 11:37 [facility] [id number]) OT- Subjective Occupational Therapy Visit Type Type Treatment Note Visit Start Time 10:22 Visit Stop Time 10:47 Total Visit Minutes 25 Occupational Therapy Visit Comments Patient Comments Pt wanting to shower. Patient/Caregiver Goals To go home. OT Pain Assessment Pain When Pain Assessed At Rest Pain Present Pain Present Pain Reported Location right neck and arm Intensity 7 Scale Used Numeric (0 - 10) M4 OT- IP ADL's Start: 10/22/20 12:38 Freq: Status: Active Protocol: Document 10/23/20 11:30 [facility] (Rec: 10/23/20 11:37 [facility] [id number]) OT [id number] Comments OT Self-Feeding Comments Pt states not having any issues swallowing her food. Pt however complaining of irritation in her throat and wanting to have a spirometer, nursing notified and came to address pt's request. OT ADL-Grooming General Evaluation Grooming Ability Independent OT ADL-Dressing General Eval Upper Body Dressing Ability Independent Lower Body Dressing Ability Independent OT ADL-Toileting General Evaluation Toileting Ability Independent OT ADL-Bathing Bathing Type Bathing Type Shower General Evaluation Bathing Ability Standby Assistance Devices Bathing Equipment Shower Chair with Arms Comments OT Bathing Comments Pt mainly just needing assist for set-up. M5 OT- IP IADL's Start: 10/22/20 12:38 Freq: Status: Active Protocol: Document 10/22/20 12:38 [facility] (Rec: 10/22/20 12:50 [facility] [id number]) OT-Instrumental Activities of Daily Living Home Safety Awareness Awareness of Need for Assistance at Home Good Awareness Ability to Problem Solve Emergency Able to Problem Solve Situations Medication Management Medication Management Comments Pt's to be home to assist pt for any IADl needs if needed. M7 OT- IP Mobility and Balance Start: 10/22/20 12:38 Freq: Status: Active Protocol: Document 10/23/20 11:30 [facility] (Rec: 10/23/20 11:37 [facility] [id number]) OT- Bed Mobility Assessment Supine to Sit Supine to Sit Assist Independent Sit to Supine Sit to Supine Assist Independent OT-Transfer Assessment Sit to and From Stand Sit to and from Stand Independent Transfers Transfer Ability Independent,Standby Assistance Technique Transfer Destination Bed,Shower Stall,Toilet Devices Transfer Assistive Devices None Comments Mobility Comments Pt able to safely move in the room with distant SBA/I M9 OT- IP Assessment and Plan Start: 10/22/20 12:38 Freq: Status: Active Protocol: Document 10/23/20 11:30 [facility] (Rec: 10/23/20 11:37 [facility] [id number]) OT Summary Assessment and Plan Potential Rehabilitation Potential Excellent Analytic Complexity at Evaluation Low Summary OT Impairments Bathing Progress Towards Goals Progressing Toward Goals Assessment Summary Pt able to shower today, but needing cues to slow down and take her time. Pt looking to go home today when medically stable. Goals Patient/Caregiver Education Goal Demonstrate Post-Op Precautions Days to Meet Goals 1 Frequency of Treatment Frequency Of Treatment Once a Day Treatment Plan OT Treatment Plan Patient/Family Education, Discharge Planning Discharge Recommendations OT Discharge Recommendations Home with Assistance Transportation Needs at Discharge Private Vehicle
[2020-10-23 12:00] VITALS: BP 127/78; PULSE 76; RESP 17; TEMP 36.6; O2SAT 98
--- NOTE | 2020-10-23 14:36 | PC.NURSE ---
Day Shift Note Alert and oriented x3. CMS intact to all extremities, gauze dressing to anterior neck is C/D/I. Pain to neck is 9/10, decreases to goal of 5/10 with oxycodone. Independent in room. Written and verbal d/c instructions given on cervical fusion, oxycodone, and vistaril. All questions answered. No meds in pharmacy and no valuables in safe. Awaiting orange picking supervisor from - estimated time of d/c is 1500.
--- NOTE | 2020-10-23 16:35 | PC.NURSE ---
patient escorted out to personal vehicle via wheelchair. Patient left in stable condition. VSS. Patient was able to get into car on own with no difficultly. Aware to get RX filled before she got home. All paperwork for d/c was reveiwed with prev. nurse, IV was already removed.
== END 2020-10-23 16:15 | disposition home or self-care (01) | DRG 473 ==
PROVIDERS: Admitting Provider Orthopaedic Surgery Orthopaedic Surgery of the Spine; PCP Family Medicine; Referring Provider Physical Medicine & Rehabilitation Pain Medicine; Visit Provider Orthopaedic Surgery Orthopaedic Surgery of the Spine
PROC: 0RG20A0 Fusion of 2 or more Cervical Vertebral Joints with Interbody Fusion Device, Anterior Approach, Anterior Column, Open Approach (ICD-10-PCS; principal; 2020-10-21 12:15)
DX: M48.02 Spinal stenosis, cervical region (principal); M47.22 Other spondylosis with radiculopathy, cervical region; I10 Essential (primary) hypertension; E11.9 Type 2 diabetes mellitus without complications; F32.9 Major depressive disorder, single episode, unspecified; J45.909 Unspecified asthma, uncomplicated; Z87.891 Personal history of nicotine dependence; R11.0 Nausea; Z79.4 Long term (current) use of insulin
CPT/HCPCS: 72040; 76000; 82962; 97116; 97161; 97165; 97530; 97535; C1776; J0690; J1100; J1170; J1815; J2250; J2405; J2704; J3010

== ENCOUNTER → 2023-06-09 13:23 | Outpatient (CLI) | payer OTHER, SELFPAY ==
[2020-10-21 16:35] VITALS: BMI 33.6
[2023-06-09 16:32] LABS: Add Manual Diff / Slide Review NO; Basophils Absolute Auto 100 /uL (0-100); Basophils Percent Auto 0.9 % (0-2); Eosinophils Absolute Auto 200 /uL (0-450); Eosinophils Percent Auto 3.6 % (2-4); Hematocrit 33.3 % (36-46); Hemoglobin 11.2 g/dL (12.0-16.0); Lymphocytes Absolute Auto 1900 /uL (1100-4500); Lymphocytes Percent Auto 29.5 % (25-40); Mean Corpuscular HGB Conc 33.6 % (30-36); Mean Corpuscular Hemoglobin 28.2 PG (26-34); Mean Corpuscular Volume 84.1 fL (80-100); Monocytes Absolute Auto 300 /uL (0-900); Monocytes Percent Auto 4.1 % (3-14); Neutrophils Absolute Auto 4000 /uL (1500-7000); Neutrophils Percent Auto 61.9 % (50-75); Platelet Count 303 X10^3/uL (150-400); Red Blood Cell Count 3.95 X10^6/uL (4.0-5.2); Red Cell Distribution Width 15.1 % (11.6-14.8); White Blood Cell Count 6.5 X10^3/uL (4.5-11.0)
[2023-06-09 16:33] LABS: Hemoglobin A1C% w Est Avg Glu 5.8 % (4.0-6.0)
[2023-06-09 17:07] LABS: Blood Urea Nitrogen 10 mg/dL (7-17); Calcium 10.1 mg/dL (8.4-10.2); Carbon Dioxide 25 mmol/L (22-32); Chloride 99 mmol/L (98-107); Estimated Glomerular Filt Rate > 60 mL/min (>60); Glucose 90 mg/dL (70-100); HEMOLYSIS < 15 (0-50); Potassium 4.8 mmol/L (3.4-5.1); Sodium 136 mmol/L (137-145)
== END ==
PROVIDERS: PCP Family Medicine; Referring Provider Orthopaedic Surgery Orthopaedic Surgery of the Spine; Visit Provider Orthopaedic Surgery Orthopaedic Surgery of the Spine
DX: Z01.818 Encounter for other preprocedural examination (principal); Z01.812 Encounter for preprocedural laboratory examination; R73.9 Hyperglycemia, unspecified
CPT/HCPCS: 36415; 80048; 83036; 85025; 93005

== ENCOUNTER 2023-08-02 12:33 | Inpatient (IN) | payer OTHER, SELFPAY ==
[2020-10-21 16:35] VITALS: BMI 33.6
[2023-07-26 13:52] VITALS: BMI 31.4
[2023-08-02] VITALS (13 sets, daily range): BP systolic 122–155; BP diastolic 75–93; PULSE 87–100; RESP 12–18; TEMP 35.8–36.4; O2SAT 92–100; BMI 31.4
--- NOTE | 2023-08-02 | DI.RAD.S_ITS ---
PROCEDURE: XR LUMBAR SPINE 2-3V INDICATIONS: TLIF L4-5 TECHNIQUE: Intraoperative fluoroscopic views of the lumbar spine were acquired. COMPARISON: None. FINDINGS: Bones: Intraoperative fluoroscopic views demonstrate posterior fixation and discectomy at L4-5. IMPRESSION: Intraoperative fluoroscopic views of inferior lumbar posterior fixation and discectomy. Dictated by: Rachel Hines M.D. on 08/03/2023 at 13:33 Approved by: Rachel Hines M.D. on 08/03/2023 at 13:33
[2023-08-02] MEDS: LACTATED RINGERS 1,000 ML 42 ML IV ×2 (13:38→16:32)
[2023-08-02] MEDS: SCOPOLAMINE 1 PATCH TOP (13:38)
[2023-08-02] MEDS: PREGABALIN 75 MG CAPSULE PO (13:38)
[2023-08-02] MEDS: DEXTROSE 50 % IN WATER 25 GM/50 ML SYRINGE IV (14:45)
--- NOTE | 2023-08-02 14:48 | SUR.PREOP ---
1435 - fsg 64 - order received per Marguerite Sanchez CRNA for 0.5 amp of D50.
--- NOTE | 2023-08-02 14:50 | PM.HP.1 ---
History of Present Illness History of Present Illness Date Patient Seen: 08/02/23 Time Patient Seen: 14:51 Date of Onset of Symptoms: 04/20/23 Chief complaint: back pain, leg pain Narrative: She has worsening back pain for the last 2 years. She has radiating pain into both legs. Her pain is in her lower back with radiating pain into both legs. FOR[facility]LY [facility] Medical History Anesthesia complication Incisional hernia Inguinal hernia ACL (anterior cruciate ligament) tear Full dentures Anemia Cancer of right breast Urinary frequency Kidney stones PTSD (post-traumatic stress disorder) Anxiety Generalized headaches Frequent headaches Hypoglycemia Diabetes 1.5, managed as type 2 Diverticulosis GERD (gastroesophageal reflux disease) Hyperlipemia Hypertension Asthma Surgical History Hx of fusion of cervical spine (10/21/20) History of Monique fundoplication (~11/10/11) History of breast reconstruction History of lumpectomy of right breast S/P right knee arthroscopy History of hysterectomy History of cholecystectomy Social History household members: spouse and children Smoking Status: Former smoker alcohol intake: never Meds Home Medications and Allergies Home Medications Medication Instructions Recorded Confirmed Type aspirin 81 mg tablet 81 mg PO DAILY 10/21/20 07/26/23 History bupropion HCl 300 mg 24 hr tablet, 300 mg PO QAM 10/21/20 08/02/23 History extended release insulin aspart U-100 100 unit/mL 5 unit SUBCUT TID PRN Hyperglycemia 10/21/20 07/26/23 History (3 mL) subcutaneous pen (Novolog FlexPen U-100 Insulin aspart) metformin 1,000 mg tablet 1,000 mg PO BID 10/21/20 08/02/23 History ondansetron 8 mg disintegrating 4 mg PO Q12H PRN Nausea 10/21/20 08/02/23 History tablet polyethylene glycol 3350 17 17 g PO DAILY PRN Constipation 10/21/20 07/26/23 History gram/dose oral powder (Miralax) promethazine 25 mg tablet 25 mg PO QID PRN Nausea 10/21/20 07/26/23 History rosuvastatin 20 mg tablet (Crestor) 40 mg PO DAILY 10/21/20 07/26/23 History zolpidem 5 mg tablet (Ambien) 5 mg PO BEDTIME PRN Insomnia 10/21/20 07/26/23 History oxycodone 5 mg tablet 5 mg PO Q3HR PRN Pain, Moderate 10/23/20 07/26/23 Rx (4-6) #60 tabs fenofibrate 160 mg tablet 160 mg PO DAILY 07/26/23 08/02/23 History insulin glargine 100 unit/mL (3 18 unit SUBCUT QAM 07/26/23 08/02/23 History mL) subcutaneous pen (Lantus Solostar U-100 Insulin) losartan 25 mg tablet 25 mg PO DAILY 07/26/23 08/02/23 History metoclopramide HCl 5 mg tablet 5 mg PO DAILY PRN GERD 07/26/23 08/02/23 History nitroglycerin 0.1 mg/hr 1 patch transdermal DAILY PRN 07/26/23 08/02/23 History transdermal 24 hour patch Chest Pain nitroglycerin 0.4 mg sublingual 0.4 mg sublingual Q5-15M PRN Chest 07/26/23 07/26/23 History tablet Pain Allergies Allergy/AdvReac Type Severity Reaction Status Date / Time clindamycin Allergy Severe Difficulty Verified 08/02/23 13:29 Breathing ciprofloxacin Allergy Intermediate Rash Verified 08/02/23 13:29 Penicillins Allergy Intermediate Hives Verified 08/02/23 13:29 acetaminophen Allergy Mild Rash Verified 08/02/23 13:29 dichloralphenazone AdvReac Severe Nausea Verified 08/02/23 13:29 isometheptene AdvReac Severe Nausea Verified 08/02/23 13:29 midodrine AdvReac Severe Nausea Verified 08/02/23 13:29 Review of Systems Review of Systems ROS: Yes All systems reviewed with the patient and are negative except as otherwise documented Exam Vital Signs (past 8 hours): - 08/02/23 13:55 Temperature 97.5 F L Pulse Rate 92 H Respiratory Rate 16 Blood Pressure 146/76 H Pulse Oximetry 100 Oxygen Delivery Method Room Air Oxygen Delivery Method Room Air Back/Spine/Pelvis Other: Limited ROM of lumbar due to pain, increased pain with flexion/extension. Neuro Other: + straight leg raise to LLE, sensibility decreased to L L4 dermatome. Motor strength 4/5 in left TA. - Clonus BLE Assessment & Plan Assessment & Plan narrative: She has severe L4-5 spinal steonsis with 5 mm of anterolistheis. She has equally limiting back pain, leg pain and symptoms of neurogenic claudication correlating with her MRI findings. Her pain has persisted for 7 months failing conservative care. I discussed treatment options with risks and benefits. Patient may benefit from L4-5 decompression and fusion to address her spinal stenosis and spondylolisthesis. Risks for surgery include but not limited to bleeding, infection, nerve/dura/bladder/bowel/blood vessel injury, need for additional procedure, even . Patient understands and would like to proceed with surgery. I scheduled her for L4-5 TLIF.
[2023-08-02] MEDS: CEFAZOLIN 2 GM/100 ML PREMIX 100 ML IV ×2 (15:27→23:52)
--- NOTE | 2023-08-02 16:01 | SUR.OPER ---
Prone on spine table, head in foam head support, padded chest and pelvic supports, gel pad at knees, lower legs supported by pillows; nipples, genitalia and toes free of pressure, arms secured on foam padded arm boards at <90 degrees abduction. Tape over blanket at thigh secured to table.
[2023-08-02] MEDS: BUPIVACAINE LIPOSOME 266 MG/20 ML VIAL INJ (16:07)
[2023-08-02] MEDS: BUPIVACAINE 0.25% (PF) 30 ML, EPINEPHrine 0.15 MG INJ (16:08)
--- NOTE | 2023-08-02 17:51 | PM.OP.1 ---
Operative Date/Time/Diagnoses Date of procedure: 08/02/23 Time of procedure: 15:40 Pre-op diagnosis: 1. L4-5 spondylolisthesis 2. L4-5 spinal stenosis with neurogenic claudication Post-op diagnosis: same Procedure & Clinicians Procedure: 1. L4-5 Postero-lateral and posterior interbody fusion 2. L4-5 interbody cage placement. 3. L4-5 decompressive laminectomy with bilateral facetecomies 4. L4-5 Posterior non-segmental instrumentation 5. [place] of bone marrow from iliac crest 6. Utilization of microsurgical technique and operating microscope Same procedure as scheduled: Yes Indications: Patient has been having chronic back pain and worsening lumbar radiculopathy and symptoms of neurogenic claudication. After workup patient was found have severe spinal stenosis at L4-5 with anterolisthesis due to advanced facet arthropathy. Patient failed multiple conservative management with worsening pain weakness and numbness in her lower extremity. Patient has been having difficulty performing activity of daily living. After discussing risks benefits of treatment options, patient elected proceed with surgery. Surgeon: Yesenia Joseph Invoicing Machine Operator: Kelle Montero Click Yes if Unassisted: No Anesthesia Type: General Operative Notes Closure Type: primary Prosthetic devices, grafts, tissues, transplants, or devices: Globus revolve screws, Rise cage Estimated Blood Loss (mL): 50 Blood products transfused: none Procedure in detail: Patient was seen in the preoperative area. Risks and benefits of the surgery was discussed with the patient. Informed consent was obtained from the patient and placed in the chart. Surgical site was marked. Patient was taken to the operative room. General anesthesia was administered. Prophylactic antibiotic was given to the patient less than 30 min before the incision was made. Patient was placed into a prone position on the Trevon table. Patient's back was then prepped and draped in the sterile fashion. Time-out was performed at this time. Using AP and lateral C-arm imaging the interval between L4-5 was identified and marked on patient's back. A 2 inch incision 2 in from midline was made on the left side first. The fascia was incised in line with skin incision. Globus MARS retractors was placed inside the incision and docked onto the L4 lamina. Using microsurgical technique and operating microscope, a L4 laminectomy and L4-5 facetectomy was performed using a Kerrison rongeur. Patient was found have severe central and foraminal stenosis due to hypertrophy ligamentum flavum and facet joints bilaterally. The epidural space as well as the neural foramen was fully decompressed after the laminectomy and facetectomy was completed. The laminectomy and facetectomy was performed in order to decompress patient's cauda equina as well as the nerve roots exiting at the L4-5 level. The disc space at L4-5 was identified. And a total diskectomy was performed at L4-5 level. The endplates were decorticated using a rasp and shaver. The total diskectomy and decortication was performed at L4-5 level in order to to accomplish a L4-5 fusion. The local bone from the laminectomy and facetectomy was saved for local bone grafting. After the total diskectomy and decortication was completed, Trifecta bone graft material was combined with local bone that was harvested earlier. At this time, a separate skin is incision was made over the iliac crest. A Jamshidi needle was inserted into the iliac crest through a separate skin incision. 5 cc of bone marrow aspiration was obtained through the separate skin incision using a Jamshidi needle from the iliac crest. The bone marrow aspiration was combined with local bone and the DBM bone grafting material. The bone grafting material was placed into the L4-5 interbody space along with a expandable cage. The cage was expanded to its maximum height using the torque limiting screwdriver. At this time a mirror image incision was made on the left side. The fascia was incised in line with the skin incision. Globus MARS retractor was inserted and docked onto the L4-5 posterolateral gutter. Using the power drill, posterior-lateral decortication was performed at L4-5 level until bleeding cortical bone was identified. The remaining bone grafting material was placed into the L4-5 posterior lateral gutter he order to accomplish posterolateral fusion at the L4-5 level. Using the double C-arm technique, pedicle screws were placed into the L4-5 pedicles bilaterally. This was done by placing the Jamshidi needle into the pedicles, then placing the guidewires over the Jamshidi needle, and finally placing the cannulated screws over the guidewires bilaterally. After the pedicle screws were placed, 2 titanium rods was locked into the heads of the pedicle screws using locking caps and torque limiting screwdriver. After all the hardware was placed, and confirmed with AP and lateral C-arm imaging, the wound was then irrigated with sterile normal saline and packed with Ray-Kayli gauze for 3 min to accomplish hemostasis. After the gauze was removed the deep fascia was closed with #1 Vicryl suture. The subcutaneous layer was closed with 2-0 Vicryl. The skin was closed with skin lily. Patient tolerated the procedure well. There were no complications. Complications: none Post-operative Condition: stable Disposition: PACU Plan for aftercare: Admit to inpatient hospital
[2023-08-02] MEDS: HYDROMORPHONE 1 MG INJ IV ×4 (18:05→18:20)
[2023-08-02] MEDS: OXYCODONE IR 5 MG TABLET PO ×2 (18:05→18:20)
[2023-08-02] MEDS: ONDANSETRON 4 MG/2 ML INJ IV (18:20)
[2023-08-02] MEDS: LACTATED RINGERS 1,000 ML 125 ML IV (19:49)
--- NOTE | 2023-08-02 19:59 | CM.MNRNOTE ---
Pt. admitted to the the floor @ 1930 from PACU. awake, alert. Nauseous, dry heaving, but no emesis noted. Bulky dressing to the back CDI, inc. of urine. Total bed changed. Oriented to her room & encouraged to call for any assistance. Will cont. POC & monitor.
[2023-08-02] MEDS: PROMETHAZINE 25 MG TABLET PO (20:24)
[2023-08-02] MEDS: DOCUSATE 100 MG CAPSULE PO (20:57)
[2023-08-02] MEDS: METFORMIN HCL 500 MG TABLET 1000 MG PO (20:57)
[2023-08-02] MEDS: SENNOSIDES 8.6 MG TABLET 17.2 MG PO (20:58)
[2023-08-02] MEDS: INSULIN LISPRO 100 UNIT/ML 3ML VIAL SUBCUT (21:06)
[2023-08-02] MEDS: OXYCODONE IR 10 MG TABLET PO (22:24)
[2023-08-03] VITALS (9 sets, daily range): BP systolic 94–135; BP diastolic 52–85; PULSE 59–104; RESP 16–19; TEMP 35.8–36.8; O2SAT 94–97
[2023-08-03] MEDS: OXYCODONE IR 10 MG TABLET PO ×4 (01:18→14:18)
[2023-08-03] MEDS: LACTATED RINGERS 1,000 ML 125 ML IV (04:14)
[2023-08-03] MEDS: NITROGLYCERIN OINT 1 INCH/GM OINT...G. 0.25 INCH TOP (05:58)
--- NOTE | 2023-08-03 07:34 | P.PN_ITS ---
Subjective Subjective Date Patient Seen: 08/03/23 Time Patient Seen: 07:34 Interval history: Patient's pain has been moderate to severe. Denies fever or chills. Patient having some shortness of breath and requiring 2 L O2 per nasal cannula. Patient has not been yet out of bed. Exam Vital Signs (past 8 hours): - 08/03/23 00:00 08/03/23 04:00 08/03/23 05:58 Temperature 96.4 F L 97.4 F L Pulse Rate 101 H 97 H 94 H Respiratory Rate 16 16 Blood Pressure 127/83 102/63 135/85 Pulse Oximetry 94 97 Oxygen Flow Rate 2 2 Oxygen Delivery Method Room Air Oxygen Flow Rate 2 Narrative Exam Narrative: 57-year-old female resting comfortably in bed in no apparent distress. Neurovascular status is intact bilateral lower extremities. Const General: cooperative and comfortable Nutritional Appearance: average body habitus Orientation: alert Resp Effort & Inspection: normal respiratory effort and able to speak in complete sentences [facility] Medical History Anesthesia complication Incisional hernia Inguinal hernia ACL (anterior cruciate ligament) tear Full dentures Anemia Cancer of right breast Urinary frequency Kidney stones PTSD (post-traumatic stress disorder) Anxiety Generalized headaches Frequent headaches Hypoglycemia Diabetes 1.5, managed as type 2 Diverticulosis GERD (gastroesophageal reflux disease) Hyperlipemia Hypertension Asthma Surgical History Hx of fusion of cervical spine (10/21/20) History of Monique fundoplication (~11/10/11) History of breast reconstruction History of lumpectomy of right breast S/P right knee arthroscopy History of hysterectomy History of cholecystectomy Social History household members: spouse and children Smoking Status: Former smoker alcohol intake: never Assessment & Plan Post-op Postoperative Procedures: Procedures Operation Date: 08/02/23 14:45 Actual Procedure Side Surgeon p L4-5 TLIF Not Applicable Yesenia Joseph MD Postoperative day: 1 Postoperative status: doing well and marginal pain control Postoperative status narrative: Stable status post L4-L5 fusion Postoperative plan: routine post-op care Postoperative plan narrative: Recommend respiratory eval, encourage incentive spirometer Multimodal pain management Mobilize with physical therapy, limit bending, twisting, lifting Disposition likely home today or tomorrow Quality VTE Deep Vein Thrombosis/Pulmonary Embolism Present on Admission: No
[2023-08-03] MEDS: CEFAZOLIN 2 GM/100 ML PREMIX 100 ML IV (08:31)
[2023-08-03] MEDS: METFORMIN HCL 500 MG TABLET 1000 MG PO ×2 (08:32→16:55)
[2023-08-03] MEDS: ATORVASTATIN 20 MG TABLET 80 MG PO (08:33)
[2023-08-03] MEDS: buPROPion XL 150 MG TAB 300 MG PO (08:33)
[2023-08-03] MEDS: BISACODYL 10 MG SUPP PR (08:33)
[2023-08-03] MEDS: DOCUSATE 100 MG CAPSULE PO (08:33)
[2023-08-03] MEDS: FENOFIBRATE, MICRONIZED 67 MG CAPSULE 201 MG PO (08:33)
[2023-08-03] MEDS: LOSARTAN 25 MG TABLET PO (08:35)
[2023-08-03] MEDS: PROMETHAZINE 25 MG TABLET PO (08:36)
--- NOTE | 2023-08-03 10:10 | OT.IPNOTE ---
Pt is lots of pain at this time 03/16 , nursing notified. To check on pt this afternoon.
--- NOTE | 2023-08-03 10:15 | PT.IIE ---
Current Diagnoses Spondylolisthesis, lumbar region (08/02/23) Spinal stenosis, lumbar region with neurogenic claudication (08/02/23) Surgery Performed Operation Date: 08/02/23 14:45 Actual Procedures p L4-5 TLIF(Not Applicable) - Yesenia Joseph MD Surgical History (Last Reviewed 08/03/23 @ 07:37 by Olvin Lebron PA-C) History of breast reconstruction History of cholecystectomy History of hysterectomy History of lumpectomy of right breast History of Monique fundoplication (~11/10/11) Hx of fusion of cervical spine (10/21/20) S/P right knee arthroscopy Medical History (Last Reviewed 08/03/23 @ 07:37 by MERT WassermanC) ACL (anterior cruciate ligament) tear Anemia Anesthesia complication Anxiety Asthma Cancer of right breast Diabetes 1.5, managed as type 2 Diverticulosis Frequent headaches Full dentures Generalized headaches GERD (gastroesophageal reflux disease) Hyperlipemia Hypertension Hypoglycemia Incisional hernia Inguinal hernia Kidney stones PTSD (post-traumatic stress disorder) Urinary frequency Physical Therapy Inpatient Evaluation/Re-Eval M1 PT/OT-IP Prior Functional Status Start: 08/03/23 11:51 Freq: NEEDED Status: Active Protocol: Document 08/03/23 10:15 AB (Rec: 08/03/23 12:05 AB [id number]) Medical Review Prior Functional Status Medical History Reviewed Yes Communication able to make needs known Mobility and Gait pt stated that she was modified independent with all mobilities and ambulation switching without AD and SPC Social History Household Members spouse,children Living Arrangements House Number of Floors (Floors) One Floor Number of Stairs To Enter/Railing? 3 steps R rail to enter from the garage Home Environment Standard Height Toilet,Walk in Shower,Built-In Shower Seat Home Equipment Straight Cane,Hand Held Shower ,Grab Bars In Shower Additional Social History Comment pt's daughter will be assisting pt at home M2 PT-IP Current Condition Start: 08/03/23 11:51 Freq: NEEDED Status: Active Protocol: Document 08/03/23 10:15 AB (Rec: 08/03/23 12:05 AB [id number]) Physical Therapy Current Condition Current Condition Evaluation Date 08/03/23 Treatment Diagnosis s/p L4-5 TLIF; difficulty in walking Onset Date 08/02/23 M3 PT-IP Subjective Start: 08/03/23 11:51 Freq: NEEDED Status: Active Protocol: Document 08/03/23 10:15 AB (Rec: 08/03/23 12:05 AB [id number]) Subjective Physical Therapy Visit Type Type Initial Evaluation Visit Start Time 10:15 Visit Stop Time 10:55 Number of DEPLOYMENT ENGINEER Visits 40 Physical Therapy Visit Comments Patient Comments agreeable to do PT Therapy Pain Assessment Pain When Pain Assessed At Rest Pain Present Pain Present Pain Reported Location Back Intensity 10 Scale Used Numeric (0 - 10) Pain Management Techniques Apply Cold,Distraction, Modification of Treatment,Re- positioning,Timing of Activity with Medications M4 PT-IP Mobility and Gait Start: 08/03/23 11:51 Freq: NEEDED Status: Active Protocol: Document 08/03/23 10:15 AB (Rec: 08/03/23 12:05 AB [id number]) PT-Bed Mobility Assessment Rolling Type of Rolling Log Rolling Level of Assist Maximal Assistance Supine to Sit Supine to Sit Maximum Assistance PT-Transfer Assessment Sit to and From Stand Sit to and from Stand Moderate Assistance,1 Person Assistance,Use of Upper Extremities Equipment Transfer Assistive Device Gait Belt,Front Wheeled Walker Orthotic/Prosthetic Devices or Brace: No Transfers Transfer Destination Chair Transfer Technique ambulated Transfer Ability Level of Assist Moderate Assistance,1 Person Assistance,Use of Upper Extremities Comments Mobility Comments pt supine in bed c/o 10/10 pain but agreed to do PT. obtained PLOF and home set up from pt. reviewed back precautions and log roll bed mobility. reviewed post-op folder contents. BP in supine: 133/70 and O2 with 2L/min: 99-100%. O2 at RA: 94-99% pt completed log roll supine to sit max A and max cues. able to sit on EOB CGA. c/o increase back pain but no dizziness/lightheadedness. completed sit to stand mod A and cues and ambulated ~ 3 ft using fWW mod A. presents with shuffling gait. pt stated that she has to sit down. assisted to the chair. positioned pt on the chair. call light and table placed within reach. pt wants a fWW dispensed to her from the hospital. informed case fitter for order. Gait Assessment Gait Gait Assistance Required: Moderate Assistance Distance (Feet) 3 Able to Maintain Weight Bearing Status Yes During Gait Assistive Devices Assistive Device Gait Belt,Front Wheeled Walker Orthotic/Prosthetic Devices or Brace: No Gait Deviations General Gait Pattern Antalgic,Decreased Stride Length,Decreased Feet Clearance,Step-to Gait Factors Limiting Gait Function Factors Limiting Gait Function Decreased Activity Tolerance, Decreased Strength,Difficulty Following Directions,Limited Range of Motion,Pain,Poor Balance,Poor Safety Awareness PT-Balance Assessment Sitting Balance and Reactions Static Sitting Balance Ability Good Dynamic Sitting Balance Ability Good Standing Balance and Reactions Static Standing Balance Ability Fair Dynamic Standing Balance Ability Poor Device Used FWW M5 PT-IP Objective Assessments Start: 08/03/23 11:51 Freq: NEEDED Status: Active Protocol: Document 08/03/23 10:15 AB (Rec: 08/03/23 12:05 AB [id number]) Orientation Orientation/Cognition Level of Alertness Alert Orientation Name,Place,Situation Language Function Ability No Deficits Noted Safety Awareness Decreased Safety Awareness Memory Description No Deficits Noted Gross Range of Motion Lower Extremity ROM Assessment Within Functional Limits Strength Lower Extremity Strength Assessment Within Functional Limits Coordination Assessment Gross Coordination Gross Coordination WNL Muscle Tone Muscle Tone WNL Yes M6 PT-IP Treatment Start: 08/03/23 11:51 Freq: NEEDED Status: Active Protocol: Document 08/03/23 10:15 AB (Rec: 08/03/23 12:05 AB [id number]) Physical Therapy Treatment Education Education Provided Precautions,Weight Bearing Status,Post-Op Packet,Safety M7 PT-IP Assessment and Plan Start: 08/03/23 11:51 Freq: NEEDED Status: Active Protocol: Document 08/03/23 10:15 AB (Rec: 08/03/23 12:05 AB [id number]) PT Summary Assessment and Plan Potential Rehabilitation Potential Fair Status of Condition at Evaluation Evolving Summary Impairments Pain,ROM,Strength,Balance, Coordination,Sensation,Tone, Cognition,Bed Mobility, Transfers,Gait,Activity Tolerance Assessment Summary pt is a 57 y/o F s/p L4-5 TLIF POD 1. pt with c/o 10/10 back pain affecting mobility and activity tolerance. pt requiring max A for log roll bed mobility and mod A for transfers and only able to ambulate ~ 3 ft using fWW mod A. pt plans to go home and her daughter to assist her. will conduct caregiver training when appropraite as well as stair climbing training. will continue to assess. Goals Bed Mobility Goal Standby Assistance Transfer Goal Standby Assistance,Front Wheeled Walker Gait Goal Standby Assistance,Front Wheel Walker Gait Distance 200 Other Goals up/down 3 steps R rail SBA Days to Meet Goals 10 Frequency of Treatment Frequency Of Treatment Twice a Day Treatment Plan Physical Therapy Treatment Plan Bed Mobility Training,Transfer Training,Gait Training, Therapeutic Exercise,Balance Retraining,Post Op Education, Discharge Planning,Hot or Cold Pack,Neuromuscular Re-ed, Coordination Retraining,Manual Therapy Precautions Lumbar Precautions Log Roll,No Twisting,Limit Bending,Lifting Restriction of 10 lbs,Gait Belt above Incisional Area Recommendations To Nursing Amount of Assist Needed 1 Person Assist Discharge Recommendations PT Discharge Recommendations Home with 28/12 Assist Available,Home Health Equipment Needed for Home Before FWW Discharge Transportation Needs at Discharge Private Vehicle
[2023-08-03] MEDS: ACETAMINOPHEN 325 MG TABLET 650 MG PO (10:28)
--- NOTE | 2023-08-03 12:00 | PC.NURSE ---
Pt alert and oriented, follows commands. expresses needs appropriately. Initial issues was nausea and Promethezine was given as ordered. Pain meds given once nausea settled. Pt has progressed through the day, now sitting up in chair. Getting ready for lunch. Nausea has subsided.
[2023-08-03] MEDS: INSULIN LISPRO 100 UNIT/ML 3ML VIAL SUBCUT ×2 (12:45→16:52)
--- NOTE | 2023-08-03 12:53 | OT.IP.EVAL ---
Current Diagnoses Spondylolisthesis, lumbar region (08/02/23) Spinal stenosis, lumbar region with neurogenic claudication (08/02/23) Surgery Performed Operation Date: 08/02/23 14:45 Actual Procedures p L4-5 TLIF(Not Applicable) - Yesenia Joseph MD Past Medical History (Last Reviewed 08/03/23 @ 07:37 by Olvin Lebron PA-C) ACL (anterior cruciate ligament) tear Anemia Anesthesia complication Anxiety Asthma Cancer of right breast Diabetes 1.5, managed as type 2 Diverticulosis Frequent headaches Full dentures Generalized headaches GERD (gastroesophageal reflux disease) Hyperlipemia Hypertension Hypoglycemia Incisional hernia Inguinal hernia Kidney stones PTSD (post-traumatic stress disorder) Urinary frequency Surgical History (Last Reviewed 08/03/23 @ 07:37 by Olvin Lebron PA-C) History of breast reconstruction History of cholecystectomy History of hysterectomy History of lumpectomy of right breast History of Monique fundoplication (~11/10/11) Hx of fusion of cervical spine (10/21/20) S/P right knee arthroscopy Occupational Therapy Inpatient Evaluation/Re-Eval M1 PT/OT-IP Prior Functional Status Start: 08/03/23 12:59 Freq: NEEDED Status: Active Protocol: Document 08/03/23 12:35 [facility] (Rec: 08/03/23 13:24 [facility] [id number]) Medical Review Prior Functional Status Medical History Reviewed Yes Communication able to make needs known Mobility and Gait pt stated that she was modified independent with all mobilities and ambulation switching without AD and use of SPC Activities of Daily Living and IADL's Pt had pain with ADl and IADl needs. Prior Functional Level (Other details) Pt's daughter to there to assist her and her for the next 6 weeks. Pt's scheduled to have hip surgery next week. Social History Household Members spouse,children Living Arrangements House Number of Floors (Floors) One Floor Number of Stairs To Enter/Railing? 3 steps R rail to enter from the garage Home Environment Standard Height Toilet,Walk in Shower,Built-In Shower Seat Home Equipment Straight Cane,Hand Held Shower ,Grab Bars In Shower Additional Social History Comment pt's daughter will be assisting pt at home for the next 6 weeks. M2 OT-IP Current Condition Start: 08/03/23 12:59 Freq: Status: Active Protocol: Document 08/03/23 12:35 [facility] (Rec: 08/03/23 13:24 [facility] [id number]) Occupational Therapy Current Condition Current Condition Evaluation Date 08/03/23 Treatment Diagnosis S/P L4-5 TLIF Diagnosis Onset Date 08/02/23 Post Operative Precautions Lumbar Precautions Log Roll,No Twisting,Limit Bending,Lifting Restriction of 10 lbs,Gait Belt above Incisional Area M3 OT- IP Subjective and Pain Start: 08/03/23 12:59 Freq: Status: Active Protocol: Document 08/03/23 12:35 [facility] (Rec: 08/03/23 13:24 [facility] [id number]) OT- Subjective Occupational Therapy Visit Type Type Initial Evaluation Visit Start Time 09:00 Visit Stop Time 12:53 Notes Pt seen from [phone] and [phone] Occupational Therapy Visit Comments Patient Comments Pt in lots of pain and needing to ask pain meds from the nurse. Patient/Caregiver Goals To go home. OT Pain Assessment Pain When Pain Assessed During Mobility Pain Present Pain Present Pain Reported Location Back Intensity 7 Scale Used Numeric (0 - 10) M4 OT- IP ADL's Start: 08/03/23 12:59 Freq: Status: Active Protocol: Document 08/03/23 12:35 [facility] (Rec: 08/03/23 13:24 [facility] [id number]) OT RKP-Zexl-Gozgibd General Evaluation Self-Feeding Ability Independent OT ADL-Grooming General Evaluation Grooming Ability Standby Assistance Comments OT Grooming Comments Pt able to wash her face after set-up of wash cloth. OT ADL-Oral Care Comments Oral Care Comments NOt performed. OT ADL-Dressing General Eval Lower Body Dressing Ability Maximum Assistance Areas Needing Assistance Socks Comments OT Dressing Comments Pt has a scalp specialist and that her daughter will be there to assist her. OT ADL-Toileting Comments OT Toileting Comments Pt states able to go prior. Pt states able to wipe but suggested to stand and use of wet wipes will be helpful. Educated pt to be mindful not to twist during toileting needs. OT ADL-Bathing Comments OT Bathing Comments Not performed. Educated on care of the dressing needs for showering. M5 OT- IP IADL's Start: 08/03/23 12:59 Freq: Status: Active Protocol: Document 08/03/23 12:35 [facility] (Rec: 08/03/23 13:24 [facility] [id number]) OT-Instrumental Activities of Daily Living Deficits IADL Deficits Identified Deficits Home Safety Awareness Awareness of Need for Assistance at Home Good Awareness Ability to Problem Solve Emergency Able to Problem Solve Situations Meal Preparation Meal Preparation Caregiver Provides Assist Way Inspector Way Inspector Caregiver Provides Assist M6 OT- IP Functional Cognition Start: 08/03/23 12:59 Freq: Status: Active Protocol: Document 08/03/23 12:35 [facility] (Rec: 08/03/23 13:24 [facility] [id number]) Cognitive Factors Limiting Selfcare Function Cognitive Ability Level of Alertness Alert,Drowsy Patient Orientation Name,Place,Situation Attention Span Ability Capable of Focused Attention, Capable of Sustained Attention Ability to Follow Commands Able to Follow One Step Commands Safety Awareness Decreased Ability to Apply Precautions Cognitive Comments Cognitive Assessment Comments Pt a little groggy and needing cues to follow her back precautions during ADL and mobility needs. Pt needing cues not to twist and at times easily distracted. OT- Vision and Hearing OT- Hearing Assessment OT- Hearing Assessment WFL OT- Vision Assessment Vision Assessment Comments Pt wears glasses to drive. M7 OT- IP Mobility and Balance Start: 08/03/23 12:59 Freq: Status: Active Protocol: Document 08/03/23 12:35 [facility] (Rec: 08/03/23 13:24 [facility] [id number]) OT-Transfer Assessment Sit to and From Stand Sit to and from Stand Minimal Assistance Transfers Transfer Ability Contact Guard Assistance Technique Transfer Destination Bed Transfer Technique Stand Step Pivot Devices Transfer Assistive Devices Gait Belt,Front Wheeled Walker Comments Mobility Comments MNA to come to stand BP 94/55 and able to get to the sink with CGA. VC to keep the FWW in front of her. Pt states feeling woozy and after cleared able to walk to the sink and back and BP 106/55. OT- Balance Assessment Sitting Balance and Reactions Static Sitting Balance Ability Good Dynamic Sitting Balance Ability Good Standing Balance and Reactions Static Standing Balance Ability Fair Dynamic Standing Balance Ability Fair M8 OT- IP Objective Assessments Start: 08/03/23 12:59 Freq: Status: Active Protocol: Document 08/03/23 12:35 [facility] (Rec: 08/03/23 13:24 [facility] [id number]) OT Strength Comments Strength Comments WFL for needs. M9 OT- IP Assessment and Plan Start: 08/03/23 12:59 Freq: Status: Active Protocol: Document 08/03/23 12:35 [facility] (Rec: 08/03/23 13:24 [facility] [id number]) OT Summary Assessment and Plan Potential Rehabilitation Potential Excellent Analytic Complexity at Evaluation Low Summary OT Impairments Pain,Balance,Functional Mobility,Grooming,Dressing, Toileting,Bathing,Toilet Transfers,Shower Transfers Progress Towards Goals Progressing Toward Goals,Slow Progress due to Pain Assessment Summary Pt low complexity and main barriers are pain, needing reminders to follow her back precautions during ADL and mobility needs. Pt has supportive daughter to assist with her needs for the next 6weeks. Pt requested to obtain a FWW, CM notified by PT. Goals Grooming Goal Independent Dressing Goal Minimal Assistance Toileting Goal Independent Bathing Goal Standby Assistance Toilet Transfer Goal Independent Shower Transfer Goal Standby Assistance Days to Meet Goals 5 Frequency of Treatment Frequency Of Treatment Once a Day Treatment Plan OT Treatment Plan ADL Training,Functional Mobility,Patient/Family Education,Discharge Planning Discharge Recommendations Home Equipment Needs FWW Transportation Needs at Discharge Private Vehicle
--- NOTE | 2023-08-03 14:41 | PT-IP ANOTE ---
Pt found resting in bed, refused PT at this time due to pain and just getting back to bed with nursing. Pt asks therapist to come back in a couple hours, therapist informed pt he will not be here for another couple of hours. Pt agreed to been seen tomorrow morning by PT.
--- NOTE | 2023-08-03 16:13 | CM.DANOTE ---
DCP Assessment Note Pt is a 57yo F here following TLIF with Dr Joseph on 08.02.23 PCP Srinivasan Martinez Payer prime and self pay CRAFT CENTER DIRECTOR reviewed EMR. Per PA note, anticipate dc home tomorrow due to pt's pain/need O2 briefly today. Per PT, rec home with 24/7 assistance. CRAFT CENTER DIRECTOR placed order for walker for home per PT's request. CRAFT CENTER DIRECTOR entered room and introduced self and role. Pt resting in bed. Reports being in a lot of pain. Lives at home in [place] with spouse and adult dtr. Spouse and dtr able to help at home. CRAFT CENTER DIRECTOR updated pt that normally Dr. Joseph does not want HH for his pts because he wants them to rest- pt reported verbal understanding. Pt confirmed plan is home with spouse and dtr when stable. Has walker/cane/3 steps into home. No additional CM needs at this time. Plan: home with family when stable. Anticipate home tomorrow. No additional CM needs identified at this time, CM team will follow as needed. EMY Lopez Discharge Planning/Care Management CM Discharge Assessment Start: 08/03/23 16:12 Freq: Status: Active Protocol: Document 08/03/23 16:12 [facility] (Rec: 08/03/23 16:13 [id number]) Discharge Planning Assessment Assigned Manager Inventory Management EM[facility] House DPOA/Assigned Designee Name Seymour spouse Contact Information [phone] Advance Directives? No History Provided By Patient,Medical Record Prior Living Arrangements House Household Members spouse,children Type of transporation used prior to Drives own vehicle admit Independent with ADL's Yes Is patient alert and oriented? Yes DME Already Rented / Owned Cane Discharge Plan Home Transportation Arrangement Family to provide transport. Referrals Initiated None needed Whiteboard Updated in Patient Room with Yes name and ext. # of Manager Inventory Management Review Status In Process Next Review Type Continued Stay Review Pre-Anesthesia Assessment Start: 07/26/23 13:52 Freq: Status: Active Protocol: Document 07/26/23 13:52 [facility] (Rec: 07/26/23 14:53 [facility] [id number]) Pre-Anesthesia Assessment Patient Information Reviewed Via Phone Assessment Assessment Completed With Patient Diagnostic Results BMP/CMP,CBC,EKG Primary Care Provider Srinivasan Martinez Seen Specialist in Last 12 Months Yes Specialist Seen Orthopedist Primary Language Upper Sorbian Preferred Language Upper Sorbian Branch Service Associate Required No Height 154.94 cm Weight 75.296 kg Body Mass Index (BMI) 31.4 Hearing Ability Normal Visual Assist Glasses Dentition Type Full- Upper & Lower Barriers to Learning None Hx Anesthesia Reactions Yes: PONV Used scop patch in past. Unable to vomit due to hernia surgery Hx Family Anesthesia Reaction No Hx Malignant Hyperthermia No Hx Blood Transfusions Yes: 2016 Hx Blood Transfusion Reaction No Anesthesia Review Requested No Marketing Operations Consultant No alcohol intake never Smoking Status Former smoker how long ago did patient quit smoking 2007 Substance Use Type does not use Musculoskeletal Symptoms Abnormal Gait,Back Pain, Difficulty Walking History of Falling (Recent or History of No ) Patient is completely paralyzed or No completely immobile Prosthesis or Orthotic Device Cane Mental Status Oriented to own ability Is patient on oxygen? No Does patient have TELLO/SOB No Hx Sleep Apnea No CPAP/BIPAP use not prescribed Currently Taking a Beta [place] No Can You Climb a Flight of Stairs Without Yes SOB Hx Chest Pain No Hx SOB No Hx Syncope or Dizziness No Anti-Coagulant Therapy No Has a Wallpaper Printer No Cardiac Testing No Hx Pacemaker/ICD No Pacemaker Rep Required? No Cardiac Clearance Received Not Applicable Diet Type At Home Regular Dysphagia No Gastrointestinal Symptoms Reflux Bladder Pattern Urgency Urinary Catheter Present No Hx Urinary Self Catheterization No Diabetes Yes: Pt has CGM HgbA1C 5.8 Date 06/09/23 Patient No Lactating No Presence of External or Internal Medical Yes: righ breast, CGM, Devices cervical hardware Received a COVID vaccine? Yes Received all doses? Yes Marital Status Lives With spouse,children Current Living Arrangements House Number of Floors (Floors) One Floor Support System Child/Children,Spouse Does the Patient Have Assistance After Yes Surgery Patient Discharge Plan Description Return Home Comment Pt not advised on length of stay per surgeon Feels Safe in Current Environment Yes Been Physically Hurt or Threatened By a No Person in Current Environment Do you have thoughts of harming yourself None or others? Are you currently considering suicide? No Do you have a plan to hurt yourself or No Plan others? Do You Have Any Spiritual Beliefs That No May Affect Your HC Choices? Do You Have Any Cultural Practices That No May Affect Your HC Choices? Comment Protestant Who Can We Speak to About Patient's Care Family, friends Identifying Code for Release of Patient Declines to issue Information Health Care Proxy/Next of Kin Seymour () Health Care Proxy Emergency Contact Name Julia (daughter) Emergency Contact Advance Directives? No Power of Clean In Places Operator Yes Power of Clean In Places Operator Name Seymour () Power of Clean In Places Operator PAC Instructions Diabetes instructions,Durable medical equipment,Medications to take/avoid,Nasal antibiotic ,No ETOH/petroleum product on skin DOS,NPO,Pre-surgical wash ,Sensory aids,Sturdy shoes/ comfortable clothes,Do not bring valuables and remove jewelry
[2023-08-03] MEDS: HYDROMORPHONE 0.5 MG INJ IV (19:53)
[2023-08-03] MEDS: SODIUM CHLORIDE 0.9% FLUSH 10 ML IV (21:00)
[2023-08-04] MEDS: OXYCODONE IR 10 MG TABLET PO ×6 (00:28→19:03)
[2023-08-04] MEDS: LACTATED RINGERS 1,000 ML 125 ML IV (00:42)
[2023-08-04 04:58] VITALS: BP 129/74; PULSE 106; RESP 19; TEMP 36.6; O2SAT 94
--- NOTE | 2023-08-04 06:37 | PM.PNPO.1 ---
Subjective Subjective Date Patient Seen: 08/04/23 Time Patient Seen: 06:37 Interval history: Zehra is sitting up in bed. Continues to complain of pain, mostly in her left leg. She has received both oral oxycodone and hydromorphone IV. She is maintaining O2 sat of 94% or greater on RA. She lives in [place] and plans to go home with the help of her daughter and ; however, her daughter had to take her to the ED at [facility] last night d/t what sounds like an episode of DKA. Exam Vital Signs (past 8 hours): - 08/04/23 04:58 Temperature 97.9 F Pulse Rate 106 H Respiratory Rate 19 Blood Pressure 129/74 Pulse Oximetry 94 Oxygen Flow Rate 0 Oxygen Delivery Method Room Air Oxygen Flow Rate 0 Narrative Exam Narrative: 5/5 strength in hip flexors, quadriceps, hamstrings, DF, PF, EHL bilaterally. Sensation to light touch intact in BLE; calves soft, compressible, nontender. Dressing placed intraoperatively is CDI. [facility] Medical History Anesthesia complication Incisional hernia Inguinal hernia ACL (anterior cruciate ligament) tear Full dentures Anemia Cancer of right breast Urinary frequency Kidney stones PTSD (post-traumatic stress disorder) Anxiety Generalized headaches Frequent headaches Hypoglycemia Diabetes 1.5, managed as type 2 Diverticulosis GERD (gastroesophageal reflux disease) Hyperlipemia Hypertension Asthma Surgical History Hx of fusion of cervical spine (10/21/20) History of Monique fundoplication (~11/10/11) History of breast reconstruction History of lumpectomy of right breast S/P right knee arthroscopy History of hysterectomy History of cholecystectomy Social History household members: spouse and children Smoking Status: Former smoker alcohol intake: never Assessment & Plan Post-op Assessment and plan (1) S/P lumbar fusion: Assessment and Plan narrative: Zehra has had limited work w/ PT d/t poor pain control. In anticipation of discharge, I would like to take her off IV pain meds and start her on steroids. She is an insulin-dependent diabetic, so this will require close monitoring of her blood sugars. Her fingersticks have not exceeded 211 since surgery; she is currently on a medium-dose SSI protocol. I would like her to stay at least one more night for further work w/ PT and monitoring of her response to steroids. If she does well with steroids, she should be discharged with a Medrol Rah. She was in agreement with this plan. Postoperative Procedures: Procedures Operation Date: 08/02/23 14:45 Actual Procedure Side Surgeon p L4-5 TLIF Not Applicable Yesenia Joseph MD Postoperative day: 2 Quality VTE Deep Vein Thrombosis/Pulmonary Embolism Present on Admission: No
[2023-08-04] MEDS: DEXAMETHASONE 4 MG/ML VIAL IV ×3 (07:33→18:57)
[2023-08-04] MEDS: METFORMIN HCL 500 MG TABLET 1000 MG PO ×2 (07:36→17:28)
[2023-08-04 08:14] VITALS: BP 117/64; PULSE 109; RESP 18; TEMP 36.7; O2SAT 92
[2023-08-04] MEDS: DOCUSATE 100 MG CAPSULE PO (08:38)
[2023-08-04] MEDS: FENOFIBRATE, MICRONIZED 67 MG CAPSULE 201 MG PO (08:39)
[2023-08-04] MEDS: buPROPion XL 150 MG TAB 300 MG PO (08:39)
[2023-08-04] MEDS: SODIUM CHLORIDE 0.9% FLUSH 10 ML IV ×2 (08:40→22:48)
[2023-08-04] MEDS: ACETAMINOPHEN 325 MG TABLET 650 MG PO (08:40)
[2023-08-04] MEDS: INSULIN GLARGINE 100 UNIT/ML 3ML PEN 18 UNIT SUBCUT (08:42)
--- NOTE | 2023-08-04 10:50 | PT.IPTN ---
Current Diagnoses Spondylolisthesis, lumbar region (08/02/23) Spinal stenosis, lumbar region with neurogenic claudication (08/02/23) Arthrodesis status (08/02/23) Surgery Performed Operation Date: 08/02/23 14:45 Actual Procedures p L4-5 TLIF(Not Applicable) - Yesenia Joseph MD Physical Therapy Treatment Note M2 PT-IP Current Condition Start: 08/03/23 11:51 Freq: NEEDED Status: Active Protocol: Document 08/03/23 10:15 [facility] (Rec: 08/03/23 12:05 AB [id number]) Physical Therapy Current Condition Current Condition Evaluation Date 08/03/23 Treatment Diagnosis s/p L4-5 TLIF; difficulty in walking Onset Date 08/02/23 M3 PT-IP Subjective Start: 08/03/23 11:51 Freq: NEEDED Status: Active Protocol: Document 08/04/23 10:50 [facility] (Rec: 08/04/23 11:36 AB [id number]) Subjective Physical Therapy Visit Type Type Treatment Note Visit Start Time 10:50 Visit Stop Time 11:20 Number of FAST FOOD WORKER Visits 0 Physical Therapy Visit Comments Patient Comments agreeable to do PT Therapy Pain Assessment Pain When Pain Assessed At Rest Pain Present Pain Present Pain Reported Location Back Intensity 8 Scale Used Numeric (0 - 10) Pain Management Techniques Apply Cold,Distraction, Modification of Treatment,Re- positioning,Timing of Activity with Medications M4 PT-IP Mobility and Gait Start: 08/03/23 11:51 Freq: NEEDED Status: Active Protocol: Document 08/04/23 10:50 [facility] (Rec: 08/04/23 11:36 AB [id number]) PT-Bed Mobility Assessment Supine to Sit Supine to Sit Minimal Assistance,1 Person Assistance,Head of Bed Elevated,Bedrails PT-Transfer Assessment Sit to and From Stand Sit to and from Stand Contact Guard Assistance, Minimal Assistance,1 Person Assistance,Use of Upper Extremities Equipment Transfer Assistive Device Gait Belt,Front Wheeled Walker Orthotic/Prosthetic Devices or Brace: No Transfers Transfer Destination Toilet Transfer Technique ambulated Transfer Ability Level of Assist Contact Guard Assistance,1 Person Assistance,Use of Upper Extremities Comments Mobility Comments checked on pt and pt in bed and wants to have her pain meds prior to doing PT. checked back on pt after ~ 45 min. pt agreed to do PT. pt requested to use the toilet . completed log roll supine to sit min A and max cues. completed sit to stand min A and max cues. pt required 3 attempts before able to complete. pt ambulated to thet toilet using FWW CGA ~ 25 ft. pt completed toileting SBA. completed sit to stand from the toilet using grab bar SBA. ambulated to the sink using FWW CGA and was able to maintain standing using FWW for support while completing handwashing. pt agreed to do more ambulation but refused to do stair climbing. ambulated in the hallway ~ 75 ft using fWW CGA. pt sat back on chair and positioned. call light and table placed within reach. set up caregiver training for tomorrow. pt stated that family can come at ~ 12 due to spouse's doctor's appointment . caregiver training set up at 1pm tomorrow. Gait Assessment Gait Gait Assistance Required: Contact Guard Assist Distance (Feet) 75 Able to Maintain Weight Bearing Status Yes During Gait Assistive Devices Assistive Device Gait Belt,Front Wheeled Walker Orthotic/Prosthetic Devices or Brace: No Gait Deviations General Gait Pattern Antalgic,Decreased Stride Length,Decreased Feet Clearance Factors Limiting Gait Function Factors Limiting Gait Function Decreased Activity Tolerance, Decreased Strength,Limited Range of Motion,Pain,Poor Balance,Poor Safety Awareness M5 PT-IP Objective Assessments Start: 08/03/23 11:51 Freq: NEEDED Status: Active Protocol: Document 08/03/23 10:15 AB (Rec: 08/03/23 12:05 AB [id number]) Orientation Orientation/Cognition Level of Alertness Alert Orientation Name,Place,Situation Language Function Ability No Deficits Noted Safety Awareness Decreased Safety Awareness Memory Description No Deficits Noted Gross Range of Motion Lower Extremity ROM Assessment Within Functional Limits Strength Lower Extremity Strength Assessment Within Functional Limits Coordination Assessment Gross Coordination Gross Coordination WNL Muscle Tone Muscle Tone WNL Yes M6 PT-IP Treatment Start: 08/03/23 11:51 Freq: NEEDED Status: Active Protocol: Document 08/04/23 10:50 AB (Rec: 08/04/23 11:36 AB [id number]) Physical Therapy Treatment Education Education Provided Safety M7 PT-IP Assessment and Plan Start: 08/03/23 11:51 Freq: NEEDED Status: Active Protocol: Document 08/04/23 10:50 AB (Rec: 02/28/24 11:36 AB [id number]) PT Summary Assessment and Plan Potential Rehabilitation Potential Fair Summary Impairments Pain,ROM,Strength,Balance, Coordination,Sensation,Tone, Cognition,Bed Mobility, Transfers,Gait,Activity Tolerance Progress Towards Goals Slow Progress due to Pain Assessment Summary pt progressing with mobility requiring min A for supine to sit log roll and CGA to min A for transfers and ambulation using fWW. pt requires cues for safety and techniques to adhere to back precautions. caregiver training set up for tomorrow at 1 pm. will continue to assess. Goals Bed Mobility Goal Standby Assistance Transfer Goal Standby Assistance,Front Wheeled Walker Gait Goal Standby Assistance,Front Wheel Walker Gait Distance 200 Other Goals up/down 3 steps R rail SBA Days to Meet Goals 10 Frequency of Treatment Frequency Of Treatment Twice a Day Treatment Plan Physical Therapy Treatment Plan Bed Mobility Training,Transfer Training,Gait Training, Therapeutic Exercise,Balance Retraining,Post Op Education, Discharge Planning,Hot or Cold Pack,Neuromuscular Re-ed, Coordination Retraining,Manual Therapy Precautions Lumbar Precautions Log Roll,No Twisting,Limit Bending,Lifting Restriction of 10 lbs,Gait Belt above Incisional Area Recommendations To Nursing Amount of Assist Needed 1 Person Assist Discharge Recommendations PT Discharge Recommendations Home with 28/12 Assist Available,Home Health Equipment Needed for Home Before FWW Discharge Transportation Needs at Discharge Private Vehicle
[2023-08-04] MEDS: INSULIN LISPRO 100 UNIT/ML 3ML VIAL SUBCUT ×2 (11:19→17:27)
--- NOTE | 2023-08-04 12:40 | PT.IPTN ---
Current Diagnoses Spondylolisthesis, lumbar region (08/02/23) Spinal stenosis, lumbar region with neurogenic claudication (08/02/23) Arthrodesis status (08/02/23) Surgery Performed Operation Date: 08/02/23 14:45 Actual Procedures p L4-5 TLIF(Not Applicable) - Yesenia Joseph MD Physical Therapy Treatment Note M2 PT-IP Current Condition Start: 08/03/23 11:51 Freq: NEEDED Status: Active Protocol: Document 08/03/23 10:15 AB (Rec: 08/03/23 12:05 AB [id number]) Physical Therapy Current Condition Current Condition Evaluation Date 08/03/23 Treatment Diagnosis s/p L4-5 TLIF; difficulty in walking Onset Date 08/02/23 M3 PT-IP Subjective Start: 08/03/23 11:51 Freq: NEEDED Status: Active Protocol: Document 08/04/23 13:47 TS (Rec: 08/04/23 13:55 TS [id number]) Subjective Physical Therapy Visit Type Type Treatment Note Visit Start Time 12:40 Visit Stop Time 13:08 Physical Therapy Visit Comments Patient Comments Pt reports pain 5/10 sitting in chair, agreeable to PT. Therapy Pain Assessment Pain When Pain Assessed At Rest Pain Present Pain Present Pain Reported Location Back Intensity 5 Scale Used Numeric (0 - 10) Description Aching Pain Management Techniques Apply Cold,Distraction, Modification of Treatment,Re- positioning,Timing of Activity with Medications M4 PT-IP Mobility and Gait Start: 08/03/23 11:51 Freq: NEEDED Status: Active Protocol: Document 08/04/23 13:47 TS (Rec: 08/04/23 13:55 TS [id number]) PT-Transfer Assessment Sit to and From Stand Sit to and from Stand Contact Guard Assistance,1 Person Assistance,Use of Upper Extremities Equipment Transfer Assistive Device Gait Belt,Front Wheeled Walker Orthotic/Prosthetic Devices or Brace: No Comments Mobility Comments STS from chair CGA with FWW. pt ambualted ~150'SBA with step thru gait and use of FWW. She performed steps x3 on stepstoll CGA with single rail support, had no buckling or LOB. Pt ambulated bakcto chair , was left in chair with all needs met. Gait Assessment Gait Gait Assistance Required: Standby Assistance Distance (Feet) 150 Able to Maintain Weight Bearing Status Yes During Gait Assistive Devices Assistive Device Gait Belt,Front Wheeled Walker Orthotic/Prosthetic Devices or Brace: No Gait Deviations General Gait Pattern Antalgic,Decreased Stride Length,Decreased Feet Clearance Factors Limiting Gait Function Factors Limiting Gait Function Decreased Activity Tolerance, Decreased Strength,Limited Range of Motion,Pain,Poor Balance,Poor Safety Awareness Comments Gait Comments See mobility comments Stair Climbing Assessment Evaluation Level of Assist On Stairs Contact Guard Assistance Devices Stair Climbing Assistive Devices Left Railing Technique/Endurance Stair Climbing Direction Ascend and Descend Stair Climbing Technique Step to Step Number of Steps Climbed 3 Comments Stair Climbing Comments See mobility comments PT-Balance Assessment Sitting Balance and Reactions Static Sitting Balance Ability Good Dynamic Sitting Balance Ability Good Standing Balance and Reactions Static Standing Balance Ability Fair Dynamic Standing Balance Ability Fair Device Used FWW M5 PT-IP Objective Assessments Start: 08/03/23 11:51 Freq: NEEDED Status: Active Protocol: Document 08/03/23 10:15 AB (Rec: 08/03/23 12:05 AB [id number]) Orientation Orientation/Cognition Level of Alertness Alert Orientation Name,Place,Situation Language Function Ability No Deficits Noted Safety Awareness Decreased Safety Awareness Memory Description No Deficits Noted Gross Range of Motion Lower Extremity ROM Assessment Within Functional Limits Strength Lower Extremity Strength Assessment Within Functional Limits Coordination Assessment Gross Coordination Gross Coordination WNL Muscle Tone Muscle Tone WNL Yes M6 PT-IP Treatment Start: 08/03/23 11:51 Freq: NEEDED Status: Active Protocol: Document 08/04/23 13:47 TS (Rec: 08/04/23 13:55 TS [id number]) Physical Therapy Treatment Education Education Provided Safety M7 PT-IP Assessment and Plan Start: 08/03/23 11:51 Freq: NEEDED Status: Active Protocol: Document 08/04/23 13:47 TS (Rec: 08/04/23 13:55 TS [id number]) PT Summary Assessment and Plan Potential Rehabilitation Potential Fair Summary Impairments Pain,ROM,Strength,Balance, Coordination,Sensation,Tone, Cognition,Bed Mobility, Transfers,Gait,Activity Tolerance Progress Towards Goals Progressing Toward Goals Assessment Summary Zehra is progressing well with her mobility. She is CGA for STS with FWW from chair. She progressed her gait to ~ 150'SBA with FWW. She progressed to stairs x3 with CGA, has no buckling or LOB. She recalled 2/3 spinal precautions(no lifting), she demonstrates good awareness of her spinal precautions during mobility. PT is recommending pt return home with 24/ assist. Goals Bed Mobility Goal Standby Assistance Transfer Goal Standby Assistance,Front Wheeled Walker Gait Goal Standby Assistance,Front Wheel Walker Gait Distance 200 Other Goals up/down 3 steps R rail SBA Days to Meet Goals 10 Frequency of Treatment Frequency Of Treatment Twice a Day Treatment Plan Physical Therapy Treatment Plan Bed Mobility Training,Transfer Training,Gait Training, Therapeutic Exercise,Balance Retraining,Post Op Education, Discharge Planning,Hot or Cold Pack,Neuromuscular Re-ed, Coordination Retraining,Manual Therapy Precautions Lumbar Precautions Log Roll,No Twisting,Limit Bending,Lifting Restriction of 10 lbs,Gait Belt above Incisional Area Recommendations To Nursing Amount of Assist Needed 1 Person Assist Discharge Recommendations PT Discharge Recommendations Home with 24/ Assist Available,Home Health Equipment Needed for Home Before FWW Discharge Transportation Needs at Discharge Private Vehicle
[2023-08-04 14:02] VITALS: BP 104/64; PULSE 105; RESP 22; TEMP 36.3; O2SAT 93
--- NOTE | 2023-08-04 14:13 | OT.IPNOTE ---
Pt prior agreed to take a shower but now too tired from mobilizing earlier with PT.
--- NOTE | 2023-08-04 16:05 | CM.DPNOTE ---
DCP Note [employer] reviewed EMR. Per ortho PA note, anticipate home tomorrow due to issues ambulating and pain control. Per therapy team, able to do more today with them. [employer] unable to meet with today due to triaging needs. Plan: anticipate home with spouse/dtr tomorrow. No CM needs identified or anticipated. CM team will continue to follow closely. EMY Lopez
[2023-08-04 20:00] VITALS: BP 138/74; PULSE 107; RESP 16; TEMP 36.6; O2SAT 95
[2023-08-04] MEDS: ATORVASTATIN 20 MG TABLET 80 MG PO (20:22)
[2023-08-05] MEDS: DEXAMETHASONE 4 MG/ML VIAL IV ×3 (00:20→11:25)
[2023-08-05] MEDS: OXYCODONE IR 10 MG TABLET PO ×4 (00:22→12:58)
[2023-08-05] MEDS: ACETAMINOPHEN 325 MG TABLET 650 MG PO (02:27)
--- NOTE | 2023-08-05 07:46 | PM.PNPO.1 ---
Subjective Subjective Date Patient Seen: 08/05/23 Time Patient Seen: 07:46 Interval history: Patient improved after starting steroids yesterday. Pain is diminished. She was able to mobilize better with physical therapy. Exam Vital Signs (past 8 hours): Oxygen Delivery Method Room Air Oxygen Flow Rate 0 Narrative Exam Narrative: 57-year-old female resting comfortably in bed no apparent distress. Motor functions intact bilateral lower extremities. Const General: cooperative and comfortable Nutritional Appearance: average body habitus Orientation: alert Resp Effort & Inspection: normal respiratory effort and able to speak in complete sentences [facility] Medical History Anesthesia complication Incisional hernia Inguinal hernia ACL (anterior cruciate ligament) tear Full dentures Anemia Cancer of right breast Urinary frequency Kidney stones PTSD (post-traumatic stress disorder) Anxiety Generalized headaches Frequent headaches Hypoglycemia Diabetes 1.5, managed as type 2 Diverticulosis GERD (gastroesophageal reflux disease) Hyperlipemia Hypertension Asthma Surgical History Hx of fusion of cervical spine (10/21/20) History of Monique fundoplication (~11/10/11) History of breast reconstruction History of lumpectomy of right breast S/P right knee arthroscopy History of hysterectomy History of cholecystectomy Social History household members: spouse and children Smoking Status: Former smoker alcohol intake: never Assessment & Plan Post-op Postoperative Procedures: Procedures Operation Date: 08/02/23 14:45 Actual Procedure Side Surgeon p L4-5 TLIF Not Applicable Yesenia Joseph MD Postoperative day: 3 Postoperative status narrative: Improving Postoperative plan narrative: Patient has been limited inability to work with physical therapy due to pain. She was started on steroids yesterday. Pain has decreased and her mobility is improved. She will mobilize with physical therapy this morning. Continue to limit bending, twisting, lifting Likely discharged home today after physical therapy if safe for home environment Plan to discharge her home with a Medrol Dosepak. Quality VTE Deep Vein Thrombosis/Pulmonary Embolism Present on Admission: No
[2023-08-05 08:00] VITALS: BP 122/75; PULSE 85; RESP 16; TEMP 36.1; O2SAT 94
[2023-08-05] MEDS: INSULIN LISPRO 100 UNIT/ML 3ML VIAL SUBCUT ×2 (08:25→12:45)
[2023-08-05] MEDS: INSULIN GLARGINE 100 UNIT/ML 3ML PEN 18 UNIT SUBCUT (08:26)
[2023-08-05] MEDS: FENOFIBRATE, MICRONIZED 67 MG CAPSULE 201 MG PO (08:32)
[2023-08-05] MEDS: METFORMIN HCL 500 MG TABLET 1000 MG PO (08:33)
[2023-08-05] MEDS: DOCUSATE 100 MG CAPSULE PO (09:00)
--- NOTE | 2023-08-05 10:20 | PT.IPTN ---
Current Diagnoses Spondylolisthesis, lumbar region (08/02/23) Spinal stenosis, lumbar region with neurogenic claudication (08/02/23) Arthrodesis status (08/02/23) Surgery Performed Operation Date: 08/02/23 14:45 Actual Procedures p L4-5 TLIF(Not Applicable) - Yesenia Joseph MD Physical Therapy Treatment Note M2 PT-IP Current Condition Start: 08/03/23 11:51 Freq: NEEDED Status: Active Protocol: Document 08/03/23 10:15 AB (Rec: 08/03/23 12:05 AB [id number]) Physical Therapy Current Condition Current Condition Evaluation Date 08/03/23 Treatment Diagnosis s/p L4-5 TLIF; difficulty in walking Onset Date 08/02/23 M3 PT-IP Subjective Start: 08/03/23 11:51 Freq: NEEDED Status: Active Protocol: Document 08/05/23 11:30 TS (Rec: 08/05/23 11:41 TS [id number]) Subjective Physical Therapy Visit Type Type Treatment Note Visit Start Time 10:20 Visit Stop Time 10:52 Number of [employer]OOKKEE[employer] Visits 2 Physical Therapy Visit Comments Patient Comments Pt reports dizziness and room spinning when working with therapy today. She stated she started having dizziness symptoms several weeks ago. Therapy Pain Assessment Pain When Pain Assessed At Rest Pain Present Pain Present Pain Reported M4 PT-IP Mobility and Gait Start: 08/03/23 11:51 Freq: NEEDED Status: Active Protocol: Document 08/05/23 11:30 TS (Rec: 08/05/23 11:41 TS [id number]) PT-Bed Mobility Assessment Supine to Sit Supine to Sit Standby Assistance,Bedrails Sit to Supine Sit to Supine Standby Assistance,Bedrails Scooting Scooting to Edge of Bed Standby Assistance PT-Transfer Assessment Sit to and From Stand Sit to and from Stand Standby Assistance Equipment Transfer Assistive Device Gait Belt,Front Wheeled Walker Orthotic/Prosthetic Devices or Brace: No Comments Mobility Comments STS from chair SBA with BUE support pushing from arms of chair. In standing pt reported some dizziness, was still agreeable to ambulate. Pt ambulated ~150'SBA with FWW, continues to report dizziness. She performed stairs x3 SBA with B rail support. She ambulated back to room, sit to supine into bed SBA, she demonstrates good carryover of logroll. Bp in supine 140/70. supine to sit SBA with cues for sequencing. Sitting EOB pt continues to report dizziness , BP 125/63. STS from bed SBA with FWW, BP in standing 122/ 61, RN was notified of dizziness. Pt was left in bedside chair, all needs met. Gait Assessment Gait Gait Assistance Required: Standby Assistance Distance (Feet) 150 Able to Maintain Weight Bearing Status Yes During Gait Assistive Devices Assistive Device Gait Belt,Front Wheeled Walker Orthotic/Prosthetic Devices or Brace: No Gait Deviations General Gait Pattern Antalgic,Decreased Stride Length,Decreased Feet Clearance Factors Limiting Gait Function Factors Limiting Gait Function Decreased Activity Tolerance, Decreased Strength,Limited Range of Motion,Pain,Poor Balance,Poor Safety Awareness Comments Gait Comments See mobility comments Stair Climbing Assessment Evaluation Level of Assist On Stairs Standby Assistance Devices Stair Climbing Assistive Devices Left Railing,Right Railing Technique/Endurance Stair Climbing Direction Ascend and Descend Stair Climbing Technique Step to Step Number of Steps Climbed 3 Comments Stair Climbing Comments See mobility comments PT-Balance Assessment Sitting Balance and Reactions Static Sitting Balance Ability Good Dynamic Sitting Balance Ability Good Standing Balance and Reactions Static Standing Balance Ability Fair Dynamic Standing Balance Ability Fair Device Used FWW M5 PT-IP Objective Assessments Start: 08/03/23 11:51 Freq: NEEDED Status: Active Protocol: Document 08/03/23 10:15 AB (Rec: 08/03/23 12:05 AB [id number]) Orientation Orientation/Cognition Level of Alertness Alert Orientation Name,Place,Situation Language Function Ability No Deficits Noted Safety Awareness Decreased Safety Awareness Memory Description No Deficits Noted Gross Range of Motion Lower Extremity ROM Assessment Within Functional Limits Strength Lower Extremity Strength Assessment Within Functional Limits Coordination Assessment Gross Coordination Gross Coordination WNL Muscle Tone Muscle Tone WNL Yes M6 PT-IP Treatment Start: 08/03/23 11:51 Freq: NEEDED Status: Active Protocol: Document 08/05/23 11:30 TS (Rec: 08/05/23 11:41 TS [id number]) Physical Therapy Treatment Education Education Provided Safety M7 PT-IP Assessment and Plan Start: 08/03/23 11:51 Freq: NEEDED Status: Active Protocol: Document 08/05/23 11:30 TS (Rec: 08/05/23 11:41 TS [id number]) PT Summary Assessment and Plan Potential Rehabilitation Potential Fair Summary Impairments Pain,ROM,Strength,Balance, Coordination,Sensation,Tone, Cognition,Bed Mobility, Transfers,Gait,Activity Tolerance Progress Towards Goals Progressing Toward Goals Assessment Summary Zehra continues to make progress with her mobility. She is SBA for all bed mobility and demonstrates good carryover of logroll sequencing. She ambulated ~150 'SBA with FWW and performed stairs x3 SBA with B handrails . She does report dizziness with all mobility this session , see vitals in mobility comments. She reports having dizziness a few weeks before her surgery. She tolerated mobility well and completed all tasks despite her dizziness. PT is recommending pt return with home with 24/7 assist. Goals Bed Mobility Goal Standby Assistance Transfer Goal Standby Assistance,Front Wheeled Walker Gait Goal Standby Assistance,Front Wheel Walker Gait Distance 200 Other Goals up/down 3 steps R rail SBA Days to Meet Goals 10 Frequency of Treatment Frequency Of Treatment Twice a Day Treatment Plan Physical Therapy Treatment Plan Bed Mobility Training,Transfer Training,Gait Training, Therapeutic Exercise,Balance Retraining,Post Op Education, Discharge Planning,Hot or Cold Pack,Neuromuscular Re-ed, Coordination Retraining,Manual Therapy Precautions Lumbar Precautions Log Roll,No Twisting,Limit Bending,Lifting Restriction of 10 lbs,Gait Belt above Incisional Area Recommendations To Nursing Amount of Assist Needed Standby Assistance Discharge Recommendations PT Discharge Recommendations Home with 24/7 Assist Available,Home Health Equipment Needed for Home Before FWW Discharge Transportation Needs at Discharge Private Vehicle
--- NOTE | 2023-08-05 10:52 | PM.DS.1 ---
History of Present Illness History of Present Illness Date Patient Seen: 08/05/23 Time Patient Seen: 10:52 Chief complaint: back pain, leg pain Narrative: See progress note Discharge Providers Provider Date of admission: 08/02/23 12:33 Discharge Date: 08/05/23 Primary care physician: Srinivasan Martinez DO Consults: 08/02/23 19:21 Consult to Occupational Therapy Evaluate & Treat Comment: Physician Instructions: Evaluate and treat Consult to Physical Therapy Evaluate & Treat Comment: Physician Instructions: Evaluate and Treat 08/03/23 11:56 Consult to Physical Therapy Evaluate & Treat Comment: Physician Instructions: walker for home use Discharge provider: Olvin Lebron PA-C Summary Hospital Course Discharge Diagnosis: 1. L4-5 spondylolisthesis 2. L4-5 spinal stenosis with neurogenic claudication Hospital Course: 1. L4-5 Postero-lateral and posterior interbody fusion 2. L4-5 interbody cage placement. 3. L4-5 decompressive laminectomy with bilateral facetecomies 4. L4-5 Posterior non-segmental instrumentation 5. Elmer of bone marrow from iliac crest 6. Utilization of microsurgical technique and operating microscope Same procedure as scheduled: Yes Indications: Patient has been having chronic back pain and worsening lumbar radiculopathy and symptoms of neurogenic claudication. After workup patient was found have severe spinal stenosis at L4-5 with anterolisthesis due to advanced facet arthropathy. Patient failed multiple conservative management with worsening pain weakness and numbness in her lower extremity. Patient has been having difficulty performing activity of daily living. After discussing risks benefits of treatment options, patient elected proceed with surgery. Surgeon: Yesenia Joseph Self Contained Behavior Unit Teacher: Kelle Montero Click Yes if Unassisted: No Anesthesia Type: General Operative Notes Closure Type: primary Prosthetic devices, grafts, tissues, transplants, or devices: Globus revolve screws, Rise cage Estimated Blood Loss (mL): 50 Blood products transfused: none Patient admitted to the hospital for the above-mentioned procedure. Patient consented to the same. Patient underwent L4-L5 fusion August 02, 2023. Patient back in her room recovering well as in stable condition. Patient had been slow to progress with physical therapy and to mobilize due to pain. Patient was placed on steroids yesterday. Patient reports significant decrease in pain has been more mobile. Patient will be discharged home on Medrol Dosepak. Multimodal pain management. Limit bending, twisting, lifting. Discharge home today in stable condition. Exam Vital Signs (past 8 hours): - 08/05/23 08:00 Temperature 97.0 F L Pulse Rate 85 Respiratory Rate 16 Blood Pressure 122/75 Pulse Oximetry 94 Oxygen Delivery Method Room Air Oxygen Flow Rate 0 Narrative Exam Narrative: See progress note PFSH Medical History Anesthesia complication Incisional hernia Inguinal hernia ACL (anterior cruciate ligament) tear Full dentures Anemia Cancer of right breast Urinary frequency Kidney stones PTSD (post-traumatic stress disorder) Anxiety Generalized headaches Frequent headaches Hypoglycemia Diabetes 1.5, managed as type 2 Diverticulosis GERD (gastroesophageal reflux disease) Hyperlipemia Hypertension Asthma Surgical History Hx of fusion of cervical spine (10/21/20) History of Monique fundoplication (~11/10/11) History of breast reconstruction History of lumpectomy of right breast S/P right knee arthroscopy History of hysterectomy History of cholecystectomy Social History household members: spouse and children Smoking Status: Former smoker alcohol intake: never Discharge Assessment & Plan Assessment and Plan Assessment: Patient progressing as expected. Plan of Treatment: Medrol Dosepak as directed Multimodal pain management Keep dressing clean and dry Follow up outpatient orthopedic clinic in 2 weeks Discharge home today in stable condition Discharge Plan Discharge Plan Patient Disposition: Home Discharge orders & Medications Prescriptions: New oxycodone 10 mg Tablet 10 mg PO Q4-5H PRN (Reason: Pain, Severe (7-10)) Qty: 40 0RF methylprednisolone [Medrol (Rah)] 4 mg tablets,dose pack See Rx Instructions .ROUTE .COMPLEX Qty: 21 0RF Rx Instructions: orally per package directions Continued ondansetron 8 mg Tablet,Disintegrating 4 mg PO Q12H PRN (Reason: Nausea) metformin 1,000 mg Tablet 1,000 mg PO BID promethazine 25 mg Tablet 25 mg PO QID PRN (Reason: Nausea) aspirin 81 mg Tablet 81 mg PO DAILY zolpidem [Ambien] 5 mg Tablet 5 mg PO BEDTIME PRN (Reason: Insomnia) polyethylene glycol 3350 [Miralax] 17 gram/dose Powder 17 g PO DAILY PRN (Reason: Constipation) insulin aspart U-100 [Novolog FlexPen U-100 Insulin] 100 unit/mL (3 mL) Insulin Pen 5 unit SUBCUT TID PRN (Reason: Hyperglycemia) Rx Instructions: 5-15 units after meals rosuvastatin [Crestor] 20 mg Tablet 40 mg PO DAILY bupropion HCl 300 mg Tablet Extended Release 24 Hr 300 mg PO QAM nitroglycerin 0.1 mg/hr Patch 24 Hour 1 patch TRANSDERMAL DAILY PRN (Reason: Chest Pain) Rx Instructions: allow nitrate-free interval of approx. 10-12 hrs per 24-hour period metoclopramide HCl 5 mg Tablet 5 mg PO DAILY PRN (Reason: GERD) Rx Instructions: administer 30 minutes before meals losartan 25 mg Tablet 25 mg PO DAILY nitroglycerin 0.4 mg Tablet, Sublingual 0.4 mg SUBLINGUAL Q5-15M PRN (Reason: Chest Pain) Rx Instructions: do not exceed 3 doses per episode fenofibrate 160 mg Tablet 160 mg PO DAILY insulin glargine [Lantus Solostar U-100 Insulin] 100 unit/mL (3 mL) Insulin Pen 18 unit SUBCUT QAM Discontinued oxycodone 5 mg Tablet 5 mg PO Q3HR PRN (Reason: Pain, Moderate (4-6)) Qty: 60 0RF Follow up/Referrals: Srinivasan Martinez DO [Primary Care Provider] - Yesenia Joseph MD [Physician] - 08/18/23 1:30 pm (Follow up w/ Chadd Calix PA-C, at [facility] in [place].) Diet/Activity/Treatments Diet: Diet as Tolerated Activity: No deep bending or twisting at the waist. No lifting more than 10 pounds. Cold/Heat Therapy: Heating pad to low back as needed for pain. Skin/Wound/Dressing Care Report to your healthcare provider any signs of infection, such as:: chills, fever, night sweats, unusual drainage and unusual redness Dressing: May shower. Keep dressing as dry as possible. If dressing becomes wet or dirty, may remove and replace with clean, dry gauze. No bathing or otherwise soaking incisions. Do not put any creams, lotions, or ointments on incisions. Visit Report/Discharge Packet Instructions: DI for Prescription Opioid Use, DI for Transforaminal Lumbar Interbody Fusion Stand Alone Forms: Patient Portal/API, Stroke Signs & Symptoms, Surgery Discharge Discharge Data Primary Care Provider: Srinivasan Martinez VTE Deep Vein Thrombosis/Pulmonary Embolism Present on Admission: No
[2023-08-05] MEDS: buPROPion XL 150 MG TAB 300 MG PO (11:22)
[2023-08-05] MEDS: SODIUM CHLORIDE 0.9% FLUSH 10 ML IV (11:23)
--- NOTE | 2023-08-05 14:22 | PC.NURSE ---
Patient is A&Ox4. VSS, afebrile on RA. Dressing C/D/I. She reports pain is tolerable this a.m. after IV steroid and po oxycodone. She is cleared by PT for discharge home with family and FWW. She reports feeling dizzy while walking but states she had this prior to surgery intermittently, and orthostatic BP's are negative. Patient BP while ambulating 120's/60's. PA at bedside this a.m. evaluating patient. She verbalizes understanding of medications, activity limitations, site care, s/sx of infection/complication as well as follow up post op appointment. She is escorted via w/ch with all of her belongings including her FWW, to private vehicle with her daughter and at 1307 this afternoon for discharge home.
== END 2023-08-05 13:07 | disposition home or self-care (01) | DRG 455 ==
PROVIDERS: Admitting Provider Orthopaedic Surgery Orthopaedic Surgery of the Spine; PCP Family Medicine; Referring Provider Orthopaedic Surgery Orthopaedic Surgery of the Spine; Visit Provider Orthopaedic Surgery Orthopaedic Surgery of the Spine
PROC: 0SG00AJ Fusion of Lumbar Vertebral Joint with Interbody Fusion Device, Posterior Approach, Anterior Column, Open Approach (ICD-10-PCS; principal; 2023-08-02 14:45)
DX: M43.16 Spondylolisthesis, lumbar region (principal); M48.062 Spinal stenosis, lumbar region with neurogenic claudication; M46.06 Spinal enthesopathy, lumbar region; E11.9 Type 2 diabetes mellitus without complications; E78.5 Hyperlipidemia, unspecified; I10 Essential (primary) hypertension; K21.9 Gastro-esophageal reflux disease without esophagitis; Z87.891 Personal history of nicotine dependence; Z79.84 Long term (current) use of oral hypoglycemic drugs; Z79.4 Long term (current) use of insulin
CPT/HCPCS: 72100; 76000; 82962; 90471; 90656; 97116; 97162; 97165; 97530; 97535; C1713; C9290; J0171; J0690; J1100; J1170; J1815; J1885; J2250; J2405; J2704; J3010; Q2038